=== PATIENT | female | born 1940 | race Caucasian/White ===

== ENCOUNTER → 2016-04-28 | Outpatient (CLI) | payer BC ==
[~2016-04-28] MED LIST: CALCTAB5 PO; CRDCD120 PO; PRAV20TA PO; PRLSR20 PO
--- NOTE | 2016-04-28 11:10 | DIAGNOSTIC IMAGING REPORT ---
CHEST 2 VIEWS ROUTINE CLINICAL HISTORY: R05 Cough dyspnea COMPARISON STUDY: 06/06/2013 FINDINGS: Chronic fibrocalcific changes and or pleural scarring left midlung. No focal infiltrate. Several scattered calcified granulomas. IMPRESSION: Chronic change. No acute process. Electronically signed by: Jake Campos M.D. 04/28/2016 11:09 AM Dictated Date/Time: 04/28/2016 11:08 AM
[2016-04-28 12:42] LABS: THYROID STIMULATING HORMONE 3.45 uIu/ml (0.300-4.500)
[2016-04-28 13:45] LABS: INFLUENZA A PCR Neg for Influ A (NEG); INFLUENZA B PCR Neg for Influ B (NEG)
== END | disposition home or self-care (01) ==
LOC: C.RAD1850 10:40
PROVIDERS: ATTEND Internal Medicine
DX: R05 Cough (principal); R94.6 Abnormal results of thyroid function studies

== ENCOUNTER → 2016-06-04 | Outpatient (CLI) | payer BC ==
--- NOTE | 2016-06-04 15:08 | MAMMOGRAPHY REPORT ---
BILATERAL DIGITAL SCREENING MAMMOGRAM WITH CAD: 06/04/2016 CLINICAL HISTORY: Routine screening. The patient reported to the technologist that she has lateral right breast pain, and reported an area of lateral breast firmness but could not identify the area a t the time of the exam. She also reported upper chest wall thickening has been present for years. TECHNIQUE: Current study was also evaluated with a Computer Aided Detection (CAD) system. Bilatera l CC and MLO views were obtained. COMPARISON: Comparison is made to exams dated: 05/24/2015 ultrasound, 05/24/2015 mammogram, 07/16/2014 mammogram, 07/13/2013 mammogram, 07/04/2012 mammogram, and 06/24/2010 mammogram - [facility]. BREAST COMPOSITION: There are scattered areas of fibroglandular density in both breasts. FINDINGS: No suspicious masses, calcifications, or areas of architectural distortion are noted in e ither breast. There has been no significant interval change compared to prior exams. Bilateral dony gn-appearing calcifications are not significantly changed. Nodular asymmetry in the left subareolar breast on the MLO view is similar to prior exams including the 2014 and 2011 exams. IMPRESSION: ACR BI-RADS CATEGORY 2: BENIGN There is no mammographic evidence of malignancy. A 1 year screening mammogram is recommended. Also recommend clinical follow-up for lateral right breast pain and possible area of firmness; if there i s clinical concern, ultrasound could be performed for further evaluation. The patient will receive written notification of the results. Approximately 10% of breast cancers are not detected with mammography. A negative mammographic repor t should not delay biopsy if a clinically suggestive mass is present. Lena Joaquin M.D. /:06/04/2016 13:29:46 Chalk Machine Operator: Tootie CHAUDHRY)([place]), [facility] letter sent: Normal 1/2 BI-RADS Code: ACR BI-RADS Category 2: Benign
== END | disposition home or self-care (01) ==
LOC: C.MAMM 09:42
PROVIDERS: ATTEND Internal Medicine
DX: Z12.31 Encounter for screening mammogram for malignant neoplasm of breast (principal)

== ENCOUNTER 2017-05-05 09:33 | Observation (INO) | payer BC ==
[~2017-05-05] VITALS: Ht 172.7 cm; Wt 73.3 kg
[2017-05-05] VITALS (9 sets, daily range): BP systolic 105–117; BP diastolic 48–69; PULSE 50–63; TEMP 36.4–36.9; O2SAT 91–99; Ht 172.7 cm; Wt 73.3 kg
[2017-05-05] MEDS ORDERED: ASPIRIN 81 MG CHEW PO STA (09:45)
[2017-05-05] MEDS ORDERED: ONDANSETRON INJ 2 MG/ML 2 ML VIAL IV STA (09:47)
[2017-05-05] MEDS ORDERED: HYDROmorphone INJ 1 MG/ML SYR IV STA (09:47)
[2017-05-05] MEDS ORDERED: ASPI81TA28 PO (09:59)
[2017-05-05] MEDS ORDERED: DILT-113 PO (09:59)
[2017-05-05] MEDS ORDERED: PRLSR20 PO (10:00)
[2017-05-05] MEDS ORDERED: OPTIRAY 320 IV PRN (10:00)
[2017-05-05] MEDS ORDERED: VNTHFA/IN INH (10:00)
[2017-05-05] MEDS ORDERED: LORA-741 PO (10:00)
--- NOTE | 2017-05-05 10:02 | DIAGNOSTIC IMAGING REPORT ---
CHEST ONE VIEW PORTABLE CLINICAL HISTORY: Chest Pain dyspnea COMPARISON STUDY: 04/28/2016 FINDINGS: Interval development of a prior peripheral left midlung infiltrate. Mild chronic basilar interstitial change. Unchanging calcified granuloma peripheral right midlung. Pulmonary apices are clear. IMPRESSION: Parenchymal infiltrate peripheral aspect left mid lung. Follow-up to complete resolution is suggested. The above report was generated using voice recognition software. It may contain grammatical, syntax or spelling errors. Electronically signed by: Jake Campos M.D. 05/05/2017 10:00 AM Dictated Date/Time: 05/05/2017 9:59 AM
[2017-05-05 10:10] LABS: BASO % 0.1 %; BASO ABS # 0.02 K/uL (0-0.2); EOS % 0.5 %; EOS ABS # 0.08 K/uL (0-0.5); HEMATOCRIT 41.4 % (37-47); HEMOGLOBIN 14.1 g/dL (12.0-16.0); IG# 0.03 K/uL (0.00-0.02); LYMPH % 7.6 %; LYMPH ABS # 1.12 K/uL (1.2-3.4); MEAN CELL VOLUME 85.9 fL (80-100); MEAN CORPUSCULAR HEMOGLOBIN 29.3 pg (25-34); MEAN CORPUSCULAR HGB CONC 34.1 g/dl (32-36); MEAN PLATELET VOLUME 10.7 fL (7.4-10.4); MONO % 4.7 %; MONO ABS # 0.69 K/uL (0.11-0.59); NEUT % 86.9 %; NEUT ABS # 12.71 K/uL (1.4-6.5); PLATELET COUNT 210 K/uL (130-400); RED CELL DISTRIBUTION WIDTH CV 14.3 % (11.5-14.5); RED CELL DISTRIBUTION WIDTH SD 44.6 fL (36.4-46.3); WHITE BLOOD COUNT 14.65 K/uL (4.8-10.8)
[2017-05-05 10:29] LABS: ALT/SGPT 13 U/L (12-78); BLOOD UREA NITROGEN 16 mg/dl (7-18); CARBON DIOXIDE 28 mmol/L (21-32); CREATININE 0.88 mg/dl (0.60-1.20); GLUCOSE 110 mg/dl (70-99); LIPASE 76 U/L (73-393); POTASSIUM 3.7 mmol/L (3.5-5.1); SODIUM 137 mmol/L (136-145)
[2017-05-05 10:34] LABS: ALKALINE PHOSPHATASE 77 U/L (45-117); AST/SGOT 12 U/L (15-37); CKMB 0.9 ng/ml (0.5-3.6); TOTAL PROTEIN 7.7 gm/dl (6.4-8.2)
--- NOTE | 2017-05-05 10:55 | DIAGNOSTIC IMAGING REPORT ---
CT ABD/PELVIS IV CONTRAST ONLY CLINICAL HISTORY: Right lower quadrant abdominal pain COMPARISON STUDY: August 2010 TECHNIQUE: Following the IV administration of 117 mL of Optiray-320, CT scan of the abdomen and pelvis was performed from the lung bases to the proximal femurs. Images are reviewed in the axial, sagittal, and coronal planes. IV contrast was administered without complication. A dose lowering technique was utilized adhering to the principles of ALARA. CT DOSE: 334.54 mGy.cm FINDINGS: Lower chest: There is pulmonary emphysema. There is mild bronchial wall thickening. There is evidence for mucous plugging. Liver: The contrast-enhanced liver is normal in size, contour, and attenuation. There is no intrahepatic biliary ductal dilatation. The hepatic veins and portal veins are patent. Gallbladder: Unremarkable. Spleen: Normal in size and attenuation. Pancreas: Unremarkable. Adrenal glands: Unremarkable. Kidneys: There is a 1 cm right renal cortical cyst. There is a 9 mL left renal cyst. Bowel: There are no transition zones indicate bowel obstruction. There is colonic diverticulosis. There are no acute peridiverticular inflammatory changes. There is a mildly dilated fluid-filled appendix with mild periappendiceal inflammatory change. In setting of right lower quadrant abdominal pain, the findings are suspicious for acute appendicitis. Peritoneum: There is no intraperitoneal free air or abdominal ascites. Vasculature: Moderate atheromatous changes are present within the abdominal aorta. Adenopathy: None. Pelvic viscera: The uterus appears surgically absent Skeletal structures: No destructive osseous lesions are seen. IMPRESSION: 1. Mildly dilated fluid-filled appendix with mild periappendiceal stranding. The findings are indicative of acute appendicitis and surgical consultation is recommended Electronically signed by: Rojelio Romero M.D. 05/05/2017 10:54 AM Dictated Date/Time: 05/05/2017 10:49 AM
--- NOTE | 2017-05-05 12:13 | Medical Consult ---
Consultation Date of Consultation: May 05, 2017. Attending Physician: Reason for Consultation: Acute Appendicitis History of Present Illness Ms. Marquez is a 77-year-old relatively healthy female who presented to the ED with chest pain and abdominal pain in the right lower quadrant that began acutely at 4AM. Patient states that she had been in her usual state of health until this morning. She states that she became nauseous, but did not vomit. She reports that her last meal was yesterday at 5PM. Patient is on a daily aspirin therapy, which she took this AM. Patient states that she was also given some Cardiac workup in ED negative. Patient states that chest pain has resolved and now pain is localized to right lower quadrant. Patient is a current everyday smoker. Social History Smoking Status: Current Every Day Smoker Allergies Coded Allergies: Prednisone (Unverified Allergy, Severe, ITCHING, PALPITATIONS, 05/05/17) Bupropion (Unverified Allergy, Unknown, ., 05/05/17) Codeine (Verified Allergy, Unknown, 05/05/17) Penicillins (Verified Allergy, Unknown, 05/05/17) Simvastatin (Unverified Adverse Reaction, Severe, MYALGIA, 05/05/17) Morphine (Verified Adverse Reaction, Intermediate, NIGHTMARES, 05/05/17) Current Inpatient Medications Current Inpatient Medications Medications (Trade) Dose Ordered Sig/Augustina Route Start Time Stop Time Status Last Admin Dose Admin Ioversol (Optiray 320) 125 ml UD PRN IV 05/05/17 10:00 05/09/17 09:59 Review of Systems Constitutional: No fever, No chills, No sweats Cardiovascular: No chest pain (resolved ) Abdomen: + pain, + nausea, No vomiting, No diarrhea, No constipation Physical Exam Date Time Temp Pulse Resp B/P (MAP) Pulse Ox O2 Delivery O2 Flow Rate FiO2 05/05/17 10:15 77 05/05/17 09:47 94 Room Air 05/05/17 09:35 36.8 86 20 128/88 94 Room Air General Appearance: WD/WN, no apparent distress Abdomen/GI: soft, + tenderness (right lower quadrant ) Skin: normal color, warm/dry, no rash Laboratory Results Last 24 Hours Test 05/05/17 09:50 05/05/17 09:55 White Blood Count 14.65 K/uL Red Blood Count 4.82 M/uL Hemoglobin 14.1 g/dL Hematocrit 41.4 % Mean Corpuscular Volume 85.9 fL Mean Corpuscular Hemoglobin 29.3 pg Mean Corpuscular Hemoglobin Concent 34.1 g/dl Platelet Count 210 K/uL Mean Platelet Volume 10.7 fL Neutrophils (%) (Auto) 86.9 % Lymphocytes (%) (Auto) 7.6 % Monocytes (%) (Auto) 4.7 % Eosinophils (%) (Auto) 0.5 % Basophils (%) (Auto) 0.1 % Neutrophils # (Auto) 12.71 K/uL Lymphocytes # (Auto) 1.12 K/uL Monocytes # (Auto) 0.69 K/uL Eosinophils # (Auto) 0.08 K/uL Basophils # (Auto) 0.02 K/uL RDW Standard Deviation 44.6 fL RDW Coefficient of Variation 14.3 % Immature Granulocyte % (Auto) 0.2 % Immature Granulocyte # (Auto) 0.03 K/uL Sodium Level 137 mmol/L Potassium Level 3.7 mmol/L Chloride Level 102 mmol/L Carbon Dioxide Level 28 mmol/L Anion Gap 7.0 mmol/L Blood Urea Nitrogen 16 mg/dl Creatinine 0.88 mg/dl Est Creatinine Clear Calc Drug Dose 54.8 ml/min Estimated GFR () 74.0 Estimated GFR (Non- 63.8 BUN/Creatinine Ratio 18.3 Random Glucose 110 mg/dl Calcium Level 9.0 mg/dl Total Bilirubin 0.5 mg/dl Direct Bilirubin 0.1 mg/dl Aspartate Amino Transf (AST/SGOT) 12 U/L Alanine Aminotransferase (ALT/SGPT) 13 U/L Alkaline Phosphatase 77 U/L Total Creatine Kinase 102 U/L Creatine Kinase MB 0.9 ng/ml Creatine Kinase MB Ratio 0.9 Troponin I < 0.015 ng/ml Total Protein 7.7 gm/dl Albumin 4.0 gm/dl Lipase 76 U/L Bedside Lactic Acid Venous 1.04 mmol/L Assessment & Plan 77-year-old female with CT confirmed acute appendicitis, WBC elevated at 14.65 Patient seen and examined with Dr. Monterroso. Will schedule patient for Laparoscopic Appendectomy with Dr. Monterroso in OR today. Risks of surgery discussed with patient. Patient had no further questions. SCDs thigh NPO ABX- Clindamycin.
[2017-05-05] MEDS ORDERED: CLINDAMYCIN IV 900 MG in DEXTROSE 5% 100ML 100 ML IV ONE (12:15)
[2017-05-05] MEDS ORDERED: LIDOCAINE HCL 2% 2 ML VIAL (20MG/ML) ONE (12:22)
[2017-05-05] MEDS ORDERED: PROPOFOL IV EMULSION 10 MG/ML 20 ML VIAL IV ONE (12:22)
[2017-05-05] MEDS ORDERED: DEXAMETHASONE SOD INJ 4 MG/ML VIAL ONE (12:22)
[2017-05-05] MEDS ORDERED: ONDANSETRON INJ 2 MG/ML 2 ML VIAL ONE (12:22)
[2017-05-05] MEDS ORDERED: BUPIVACAINE 0.5 % 5 MG/1 ML MPF 30ML VIAL ONE (12:23)
[2017-05-05] MEDS ORDERED: FENTANYL CITRATE INJ 50 MCG/1 ML 2 ML VIAL ONE (12:23)
[2017-05-05] MEDS ORDERED: MIDAZOLAM HCL 1 MG/ML 2ML VIAL ONE (12:23)
[2017-05-05] MEDS ORDERED: HYDROmorphone INJ 1 MG/ML SYR IV PRN (12:30)
[2017-05-05] MEDS ORDERED: LABETALOL HCL IV 5 MG/ML 20ML IV PRN (12:30)
[2017-05-05] MEDS ORDERED: FENTANYL CITRATE INJ 50 MCG/1 ML 2 ML VIAL IV PRN (12:30)
[2017-05-05] MEDS ORDERED: ONDANSETRON INJ 2 MG/ML 2 ML VIAL IV PRN ×2 (12:30→14:15)
[2017-05-05] MEDS ORDERED: ATROPINE SULFATE 0.1 MG/ML 5ML SYR IV PRN (12:30)
[2017-05-05] MEDS ORDERED: MEPERIDINE HCL 25 MG/ML CARP IV PRN (12:30)
[2017-05-05] MEDS ORDERED: EpHEDrine SULFATE INJ 50 MG/ML AMP IV PRN (12:30)
[2017-05-05] MEDS ORDERED: ACETAMINOPHEN 1000 MG/100 ML IV IV ONE (12:55)
[2017-05-05] MEDS ORDERED: ROCURONIUM BROMIDE 10 MG/ML 5 ML VIAL IV ONE (13:53)
[2017-05-05] MEDS ORDERED: NEOSTIGMINE METHYLSULFATE 5 MG/5 ML SYR ONE (13:54)
[2017-05-05] MEDS ORDERED: GLYCOPYRROLATE INJ 0.2 MG/ML VIAL ONE (13:54)
--- NOTE | 2017-05-05 14:03 | [facility] Post Operative Brief Note ---
Immediate Operative Summary Operative Date May 05, 2017. Pre-Operative Diagnosis Acute Appendicitis Post-Operative Diagnosis Acute Appendicitis Procedure(s) Performed Laparoscopic Appendectomy Surgeon Dr. Monterroso [employer] Surgeon(s) RAISA Smith Estimated Blood Loss 3 ml Findings Consistent with Post-Op Diagnosis Acute, nonperforated, suppurative appendicitis Specimens A. Appendix Drains None Anesthesia Type General Complication(s) none Disposition Accompanied Pt To Recover: no Disposition: Recovery Room / PACU
--- NOTE | 2017-05-05 14:07 | [facility] Operative Report ---
Operative Report Operative Date May 05, 2017. Pre-Operative Diagnosis Acute Appendicitis Post-Operative Diagnosis Acute, nonperforated, suppurative appendicitis Procedure(s) Performed Laparoscopic appendectomy Surgeon Dr. Monterroso Sheet Metal Insulator Surgeon(s) RAISA Smith Estimated Blood Loss 3 ml Findings Acute, nonperforated, suppurative appendicitis Specimens A. Appendix Drains None Anesthesia GETA Complication(s) None Disposition Recovery Room / PACU Indications 77-year-old female presented to the emergency department with diffuse abdominal and chest pain, cardiac workup negative. Pain eventually migrated to the right lower quadrant, and a CT scan revealed acute appendicitis. Plan for laparoscopic appendectomy. The risks of the procedure were discussed, all questions were answered, and the patient agreed to proceed with surgery as planned. Description of Procedure The patient was properly identified, consented, and taken to the operating room where she was placed in the supine position. General endotracheal anesthesia was induced. SCDs and a safety belt were placed. Preoperative antibiotics were administered. A Isabel catheter was not placed. The patient's abdomen was prepped and draped in the standard sterile fashion. Surgical timeout was performed and all parties were in agreement that this was the correct patient and procedure to be performed and we continued as planned. A curvilinear infraumbilical incision was made with electrocautery and deepened down to the fascia with blunt dissection. The base of the umbilicus was grasped with a Christopher and elevated towards the ceiling. An incision was made in the midline fascia with a knife and entry into the peritoneum was confirmed. Stay suture of 0 Vicryl was placed and a Garcia trocar was inserted. The abdomen was insufflated with carbon dioxide which the patient tolerated without incident. The laparoscope was inserted and no damage from initial trocar placement was noted, no gross abnormalities were noted within the 4 quadrants the abdomen. 3 mm ports were then placed in the left lower quadrant with care not to damage the epigastric vessels, and in the suprapubic midline with care not to damage the bladder. The patient was placed in Trendelenburg position and rotated towards the left. The small bowel was swept away from the right lower quadrant. The cecum was grasped with an atraumatic grasper exposing the appendix. The appendix was moderately inflamed and there was no evidence of perforation, but there may have been a small amount of focal necrosis in the mid and proximal appendix. There was no significant fluid in the pelvis. A window was created between the base of the appendix and the mesoappendix. A lemos loaded endoscopic stapler was then used to divide the appendix at its base. A lemos load was then used to divide the mesoappendix. Hemostasis was good. The appendix was placed in an Endo Catch bag and removed through the umbilical port site. The right lower quadrant and pelvis was irrigated and hemostasis was found to be good. 3 mm trochars were removed under direct visualization and the abdomen was allowed to collapse. The umbilical port site fascia was closed with 0 Vicryl suture. The wound was irrigated, and the skin of the umbilical port was closed with 4-0 Monocryl subcuticular suture. Dermabond was placed over the wounds. The patient was extubated in the operating room and taken to the PACU where she recovered without apparent incident. All sponge, instrument and needle counts were correct at the conclusion of the procedure. The patient tolerated the procedure well. The physician's clerical assistant was present and scrubbed for the entirety of the case. She was essential in positioning, prepping and draping the patient, retraction and exposure, removal of the appendix, closure incisions, and placement of dressings. I attest to the content of the Intraoperative Record and any orders documented therein. Any exceptions are noted below.
--- NOTE | 2017-05-05 14:22 | Discharge Instructions ---
Discharge Instructions Date of Service May 05, 2017. Admission Reason for Admission: Body Pains Discharge Discharge Diagnosis / Problem: Body Pains Discharge Goals Goal(s): Decrease discomfort, Improve function Activity Recommendations Activity Limitations: as noted below Lifting Limitations: no more than 10 pounds Exercise/Sports Limitations: until after follow-up appointment May Resume Sexual Activity: after follow-up appointment Shower/Bathe: tomorrow Driving or Machine Use: resume 3 days after discharge . Instructions / Follow-Up Instructions / Follow-Up Please follow-up with Dr. Monterroso in the General Surgery Clinic located at [address] [place] [address] [place] [address] in 1-2 weeks. Please call the office at [phone] to schedule this appointment. Please call the office with any questions or concerns. Current Hospital Diet Patient's current hospital diet: Clear Liquid Diet Discharge Diet Recommended Diet: Regular Diet Procedures Procedures Performed: Laparoscopic Appendectomy Pending Studies Studies pending at discharge: yes List of pending studies: Pathology report. Medical Emergencies . Who to Call and When: Medical Emergencies: If at any time you feel your situation is an emergency, please call 911 immediately. . Non-Emergent Contact Non-Emergency issues call your: Primary Care Provider, Surgeon Call Non-Emergent contact if: temperature is above 101.5, your pain is not controlled, wound has increased drainage, wound has increased redness . "Provider Documentation" section prepared by Gissell Jamison. . VTE Core Measure Inpt VTE Proph given/why not?: SCD's
[2017-05-05] MEDS ORDERED: LORAZEPAM 0.5 MG TAB PO PRN (14:30)
[2017-05-05] MEDS: ALBUTEROL HFA 8 GM INHALER INH SCH ×2 (14:30→21:06)
[2017-05-05] MEDS ORDERED: TRAMADOL HCL 50 MG TAB PO PRN (14:30)
[2017-05-05] MEDS ORDERED: ACETAMINOPHEN IV 100 ML IV PRN (14:30)
--- NOTE | 2017-05-05 15:18 | Anesthesiology Progress Note ---
Anesthesia Post Op Note Date & Time May 05, 2017 at 15:18 Vital Signs Pain Intensity: 0 Vital Signs Past 12 Hours Date Time Temp Pulse Resp B/P (MAP) Pulse Ox O2 Delivery O2 Flow Rate FiO2 05/05/17 15:05 55 16 119/63 97 Nasal Cannula 2 05/05/17 14:55 55 16 126/64 97 Nasal Cannula 2 05/05/17 14:45 70 16 124/64 97 Nasal Cannula 2 05/05/17 14:35 70 16 134/69 92 Room Air 05/05/17 14:25 79 16 132/69 94 Nasal Cannula 2 05/05/17 14:16 36.7 71 16 163/80 98 Oxymask 10 05/05/17 12:43 36.8 66 20 130/70 94 05/05/17 12:33 66 20 05/05/17 12:31 130/70 05/05/17 12:17 94 Room Air 05/05/17 12:03 68 15 05/05/17 12:01 139/74 05/05/17 11:33 68 17 93 05/05/17 11:31 132/73 05/05/17 11:03 77 18 90 05/05/17 10:33 75 16 05/05/17 10:31 137/72 05/05/17 10:15 77 05/05/17 10:03 138/80 05/05/17 09:47 94 Room Air 05/05/17 09:35 36.8 86 20 128/88 94 Room Air Notes Mental Status: alert / awake / arousable, participated in evaluation Pt Amnestic to Procedure: Yes Nausea / Vomiting: adequately controlled Pain: adequately controlled Airway Patency, RR, SpO2: stable & adequate BP & HR: stable & adequate Hydration State: stable & adequate Anesthetic Complications: no major complications apparent
[2017-05-05] MEDS ORDERED: IV FLUIDS COMPLETED PRN (15:45)
--- NOTE | 2017-05-05 15:55 | EMERGENCY ROOM VISIT NOTE ---
History Report prepared by Crow: Ric Manriquez Under the Supervision of: Dr. Carlos South D.O. First contact with patient: 09:39 Chief Complaint: CARDIAC ASSESSMENT Stated Complaint: BODY PAINS History of Present Illness The patient is a 77 year old female who presents to the Emergency Room with complaints of a burning left sided chest pain that began this morning. She rates her pain an 8/10 in severity. She has a past medical history of angina, hyperlipidemia, borderline diabetes, and smoking. When the patient woke up this morning, she had this sensation in her chest that radiated into her upper abdomen. Now, the patient's chest pain is mildly better, but her abdominal pain moved into her right lower abdomen. She denies any arm pain or jaw pain. She is experiencing intermittent neck pain. Pt denies headache, change in vision, fevers, cough, sore throat, shortness of breath, nausea, vomiting, diarrhea, pain with urination, and melena. Patient denies hypertension, CAD, history of sudden at a young age. Her last bowel movement was yesterday and reports it as normal. Source of History: patient Position: chest (left) Symptom Intensity: 8/10 Quality: burning Timing: constant Associated Symptoms: + neck pain (intermittent), + abdominal pain (RLQ), No fevers, No headache, No SOB, No nausea, No vomiting, No melena, No diarrhea, No urinary symptoms Review of Systems See HPI for pertinent positives & negatives. A total of 10 systems reviewed and were otherwise negative. Past Medical & Surgical Medical Problems: (1) Anginal pain (2) HLD (hyperlipidemia) (3) Prediabetes Surgical Problems: (1) S/P laparoscopic appendectomy Family History Omitted secondary to the patient's age. Social History Smoking Status: Current Every Day Smoker Smokeless Tobacco Use: No Drug Use: none Occupation Status: retired Current/Historical Medications Scheduled Albuterol Hfa (Ventolin Hfa), 2-4 PUFFS INH Q6H Aspirin (Aspirin Ec), 81 MG PO DAILY Diltiazem Hcl Ext Rel (Tiazac), 180 MG PO DAILY Omeprazole (Prilosec), 20 MG PO BID Scheduled PRN Lorazepam (Ativan), 0.5 MG PO BID PRN for Anxiety Allergies Coded Allergies: Prednisone (Unverified Allergy, Severe, ITCHING, PALPITATIONS, 05/05/17) Bupropion (Unverified Allergy, Unknown, ., 05/05/17) Codeine (Verified Allergy, Unknown, 05/05/17) Penicillins (Verified Allergy, Unknown, 05/05/17) Simvastatin (Unverified Adverse Reaction, Severe, MYALGIA, 05/05/17) Morphine (Verified Adverse Reaction, Intermediate, NIGHTMARES, 05/05/17) Physical Exam Vital Signs Date Time Temp Pulse Resp B/P (MAP) Pulse Ox O2 Delivery O2 Flow Rate FiO2 05/05/17 15:35 55 16 113/61 97 Nasal Cannula 2 05/05/17 15:25 55 16 103/53 97 Nasal Cannula 2 05/05/17 15:15 36.9 55 16 115/67 97 Nasal Cannula 2 05/05/17 15:05 55 16 119/63 97 Nasal Cannula 2 05/05/17 14:55 55 16 126/64 97 Nasal Cannula 2 05/05/17 14:45 70 16 124/64 97 Nasal Cannula 2 05/05/17 14:35 70 16 134/69 92 Room Air 05/05/17 14:25 79 16 132/69 94 Nasal Cannula 2 05/05/17 14:16 36.7 71 16 163/80 98 Oxymask 10 05/05/17 12:43 36.8 66 20 130/70 94 05/05/17 12:33 66 20 05/05/17 12:31 130/70 05/05/17 12:17 94 Room Air 05/05/17 12:03 68 15 05/05/17 12:01 139/74 05/05/17 11:33 68 17 93 05/05/17 11:31 132/73 05/05/17 11:03 77 18 90 05/05/17 10:33 75 16 05/05/17 10:31 137/72 05/05/17 10:15 77 05/05/17 10:03 138/80 05/05/17 09:47 94 Room Air 05/05/17 09:35 36.8 86 20 128/88 94 Room Air Physical Exam GENERAL: Sitting up in bed with a dry nonproductive cough, alert, chronically ill appearing, well nourished, no distress, non-toxic EYE EXAM: normal conjunctiva. PERRL and EOM's grossly intact. OROPHARYNX: no exudate, no erythema, lips, buccal mucosa, and tongue normal and mucous membranes are moist NECK: supple, no nuchal rigidity, no adenopathy, non-tender LUNGS: Clear to auscultation. Normal chest wall mechanics HEART: no murmurs, S1 normal and S2 normal ABDOMEN: abdomen soft, tenderness to palpation of the RLQ, normo-active bowel sounds, no masses, no rebound or guarding. BACK: Back is symmetrical on inspection and there is no deformity, no midline tenderness, no CVA tenderness. SKIN: no rashes and no bruising UPPER EXTREMITIES: upper extremities are grossly normal. LOWER EXTREMITIES: No pitting edema. NEURO EXAM: Normal sensorium, cranial nerves II-XII grossly intact, normal speech, no gross weakness of arms, no gross weakness of legs. Medical Decision & Procedures ER Provider Diagnostic Interpretation: Radiology results as stated below per my review and the radiologist's interpretation: CHEST ONE VIEW PORTABLE CLINICAL HISTORY: Chest Pain dyspnea COMPARISON STUDY: 04/28/2016 FINDINGS: Interval development of a prior peripheral left midlung infiltrate. Mild chronic basilar interstitial change. Unchanging calcified granuloma peripheral right midlung. Pulmonary apices are clear. IMPRESSION: Parenchymal infiltrate peripheral aspect left mid lung. Follow-up to complete resolution is suggested. The above report was generated using voice recognition software. It may contain grammatical, syntax or spelling errors. Electronically signed by: Jake Campos M.D. 05/05/2017 10:00 AM Dictated Date/Time: 05/05/2017 9:[address] ABD/PELVIS IV CONTRAST ONLY CLINICAL HISTORY: Right lower quadrant abdominal pain COMPARISON STUDY: August 2010 TECHNIQUE: Following the IV administration of 117 mL of Optiray-320, CT scan of the abdomen and pelvis was performed from the lung bases to the proximal femurs. Images are reviewed in the axial, sagittal, and coronal planes. IV contrast was administered without complication. A dose lowering technique was utilized adhering to the principles of ALARA. CT DOSE: 334.54 mGy.cm FINDINGS: Lower chest: There is pulmonary emphysema. There is mild bronchial wall thickening. There is evidence for mucous plugging. Liver: The contrast-enhanced liver is normal in size, contour, and attenuation. There is no intrahepatic biliary ductal dilatation. The hepatic veins and portal veins are patent. Gallbladder: Unremarkable. Spleen: Normal in size and attenuation. Pancreas: Unremarkable. Adrenal glands: Unremarkable. Kidneys: There is a 1 cm right renal cortical cyst. There is a 9 mL left renal cyst. Bowel: There are no transition zones indicate bowel obstruction. There is colonic diverticulosis. There are no acute peridiverticular inflammatory changes. There is a mildly dilated fluid-filled appendix with mild periappendiceal inflammatory change. In setting of right lower quadrant abdominal pain, the findings are suspicious for acute appendicitis. Peritoneum: There is no intraperitoneal free air or abdominal ascites. Vasculature: Moderate atheromatous changes are present within the abdominal aorta. Adenopathy: None. Pelvic viscera: The uterus appears surgically absent Skeletal structures: No destructive osseous lesions are seen. IMPRESSION: 1. Mildly dilated fluid-filled appendix with mild periappendiceal stranding. The findings are indicative of acute appendicitis and surgical consultation is recommended Electronically signed by: Rojelio Romero M.D. 05/05/2017 10:54 AM Dictated Date/Time: 05/05/2017 10:49 AM Laboratory Results 05/05/17 09:50 Red Blood Count 4.82, Mean Corpuscular Volume 85.9, Mean Corpuscular Hemoglobin 29.3, Mean Corpuscular Hemoglobin Concent 34.1, Mean Platelet Volume 10.7, Neutrophils (%) (Auto) 86.9, Lymphocytes (%) (Auto) 7.6, Monocytes (%) (Auto) 4.7, Eosinophils (%) (Auto) 0.5, Basophils (%) (Auto) 0.1, Neutrophils # (Auto) 12.71, Lymphocytes # (Auto) 1.12, Monocytes # (Auto) 0.69, Eosinophils # (Auto) 0.08, Basophils # (Auto) 0.02 05/05/17 09:50 Test 05/05/17 09:50 05/05/17 09:55 White Blood Count 14.65 K/uL (4.8-10.8) Red Blood Count 4.82 M/uL (4.2-5.4) Hemoglobin 14.1 g/dL (12.0-16.0) Hematocrit 41.4 % (37-47) Mean Corpuscular Volume 85.9 fL (80-100) Mean Corpuscular Hemoglobin 29.3 pg (25-34) Mean Corpuscular Hemoglobin Concent 34.1 g/dl (32-36) Platelet Count 210 K/uL (130-400) Mean Platelet Volume 10.7 fL (7.4-10.4) Neutrophils (%) (Auto) 86.9 % Lymphocytes (%) (Auto) 7.6 % Monocytes (%) (Auto) 4.7 % Eosinophils (%) (Auto) 0.5 % Basophils (%) (Auto) 0.1 % Neutrophils # (Auto) 12.71 K/uL (1.4-6.5) Lymphocytes # (Auto) 1.12 K/uL (1.2-3.4) Monocytes # (Auto) 0.69 K/uL (0.11-0.59) Eosinophils # (Auto) 0.08 K/uL (0-0.5) Basophils # (Auto) 0.02 K/uL (0-0.2) RDW Standard Deviation 44.6 fL (36.4-46.3) RDW Coefficient of Variation 14.3 % (11.5-14.5) Immature Granulocyte % (Auto) 0.2 % Immature Granulocyte # (Auto) 0.03 K/uL (0.00-0.02) Anion Gap 7.0 mmol/L (3-11) Est Creatinine Clear Calc Drug Dose 54.8 ml/min Estimated GFR () 74.0 Estimated GFR (Non- 63.8 BUN/Creatinine Ratio 18.3 (10-20) Calcium Level 9.0 mg/dl (8.5-10.1) Total Bilirubin 0.5 mg/dl (0.2-1) Direct Bilirubin 0.1 mg/dl (0-0.2) Aspartate Amino Transf (AST/SGOT) 12 U/L (15-37) Alanine Aminotransferase (ALT/SGPT) 13 U/L (12-78) Alkaline Phosphatase 77 U/L (45-117) Total Creatine Kinase 102 U/L (26-192) Creatine Kinase MB 0.9 ng/ml (0.5-3.6) Creatine Kinase MB Ratio 0.9 (0-3.0) Troponin I < 0.015 ng/ml (0-0.045) Total Protein 7.7 gm/dl (6.4-8.2) Albumin 4.0 gm/dl (3.4-5.0) Lipase 76 U/L (73-393) Bedside Lactic Acid Venous 1.04 mmol/L (0.90-1.70) Laboratory results per my review. Medications Administered Medications (Trade) Dose Ordered Sig/Augustina Route Start Time Stop Time Status Last Admin Dose Admin Aspirin (Aspirin Chew) 324 mg NOW STAT PO 05/05/17 09:45 05/05/17 09:46 DC 05/05/17 10:01 324 MG Hydromorphone HCl (Dilaudid Inj) 1 mg NOW STAT IV 05/05/17 09:47 05/05/17 09:48 DC 05/05/17 10:03 1 MG Ondansetron HCl (Zofran Inj) 4 mg NOW STAT IV 05/05/17 09:47 05/05/17 09:48 DC 05/05/17 10:02 4 MG Clindamycin Phosphate 900 mg/ Dextrose 106 ml @ 100 mls/hr ONE ONCE IV 05/05/17 12:15 05/05/17 13:18 DC 05/05/17 13:05 100 MLS/HR Bupivacaine HCl (Marcaine 0.5% MPF Inj) 30 ml STK-MED ONCE .ROUTE 05/05/17 12:23 05/05/17 12:24 DC 05/05/17 13:59 12 ML ECG Per My Interpretation Indication: abdominal pain, chest pain Rate (beats per minute): 80 Rhythm: sinus rhythm Findings: nonspecific-ST abn (inferior and lateral), Q waves (Septal) Comparison ECG Date: Mar 15, 2001 Change: Nonspecific ST abnormalities are new ED Course ED COURSE: Vital signs were reviewed and showed normal vitals The patients medical record was reviewed The above diagnostic studies were performed and reviewed. ED treatments and interventions as stated above. 0939: The patient was evaluated in room A12. A complete history and physical examination was performed. 0945: Ordered Aspirin 324 mg PO 0947: Ordered Zofran Inj 4 mg IV, Dilaudid Inj 1 mg IV 1053: Upon reevaluation, the patient is feeling much better. She no long has chest pain but is having RLQ abdominal pain. 1105: I updated the patient on her results. 1132: Upon reevaluation, the patient is resting.I discussed my findings with the patient and she understands and agrees with the treatment plan. Based on the patients age, coexisting illnesses, exam and lab findings the decision to treat as an inpatient was made. The patient remained stable while under my care. The patient will be evaluated by Gissell VILLAFANA of General Surgery, for further management. Medical Decision Differential diagnoses includes but is not limited to acute coronary syndrome, myocardial infarction, pericarditis, pulmonary embolus, aortic dissection, pneumonia, pneumothorax, musculoskeletal, shingles, esophageal, gastritis, peptic ulcer disease, GERD, gallbladder disease, pancreatitis, small bowel obstruction, pericarditis, ischemic bowel, irritable bowel disease, irritable bowel syndrome, appendicitis, diverticulitis, malignancy, hernia, urinary tract infection, torsion, perforation, trauma, infectious. Patient is a 77-year-old female that presents to the ER for initially epigastric chest pain which then radiated to the right lower quadrant that started this morning. Labs show a leukocytosis of 14,000. BMP along with ALTs , bilirubin, troponin and lipase were normal. Lactic acid was normal. CT of the abdomen and pelvis shows acute appendicitis. Patient was given IV narcotics. She was updated at bedside. Discussed with general surgery and she was evaluated and admitted for acute appendicitis. Medication Reconcilliation Current Medication List: was personally reviewed by me Blood Pressure Screening Patient's blood pressure: Normal blood pressure Blood pressure disposition: Did not require urgent referral Consults Time Called: 1110 Consulting Physician: Gissell VILLAFANA - General Surgery Returned Call: 1132 I reviewed the patient's case with her. She will evaluate the patient for further management. Impression Primary Impression: Acute appendicitis Scribe Attestation The scribe's documentation has been prepared under my direction and personally reviewed by me in its entirety. I confirm that the note above accurately reflects all work, treatment, procedures, and medical decision making performed by me. Departure Information Dispostion Being Evaluated By Surgeon Referrals Jass Graves M.D. (PCP) Patient Instructions My [facility] Problem Qualifiers Primary Impression: Acute appendicitis Acute appendicitis type: with localized peritonitis Qualified Codes: K35.3 - Acute appendicitis with localized peritonitis
[2017-05-05] MEDS: LACTATED RINGER'S 1000ML 1,000 ML IV SCH ×2 (18:29→22:21)
[2017-05-05] MEDS: PANTOprazole SOD 40 MG TAB PO SCH (21:06)
[2017-05-06] MEDS: ALBUTEROL HFA 8 GM INHALER INH SCH ×2 (03:07→08:52)
[2017-05-06 03:48] VITALS: BP 123/45; PULSE 56; TEMP 36.3; O2SAT 93
[2017-05-06] MEDS: LACTATED RINGER'S 1000ML 1,000 ML IV SCH (05:45)
[2017-05-06 06:35] LABS: HEMATOCRIT 36.6 % (37-47); HEMOGLOBIN 12.5 g/dL (12.0-16.0); IG# 0.05 K/uL (0.00-0.02); LYMPH % 7.3 %; LYMPH ABS # 0.85 K/uL (1.2-3.4); MEAN CELL VOLUME 84.5 fL (80-100); MEAN CORPUSCULAR HEMOGLOBIN 28.9 pg (25-34); MEAN CORPUSCULAR HGB CONC 34.2 g/dl (32-36); MEAN PLATELET VOLUME 10.2 fL (7.4-10.4); MONO ABS # 0.23 K/uL (0.11-0.59); NEUT % 90.3 %; NEUT ABS # 10.46 K/uL (1.4-6.5); PLATELET COUNT 182 K/uL (130-400); RED CELL DISTRIBUTION WIDTH CV 14.1 % (11.5-14.5); WHITE BLOOD COUNT 11.59 K/uL (4.8-10.8)
--- NOTE | 2017-05-06 06:36 | Surgery Progress Note ---
Surgery Progress Note Date of Service May 06, 2017. Subjective Post OP Day: 1 + feeling well, + ambulating, + pain controlled, + diet (Tolerating full liquids ), No complaints, No bowel movement, No nausea, No vomiting Objective Vital Signs: Date Time Temp Pulse Resp B/P (MAP) Pulse Ox O2 Delivery O2 Flow Rate FiO2 05/06/17 03:48 36.3 56 18 123/45 (71) 93 Room Air 05/05/17 23:55 Room Air 05/05/17 22:33 36.9 57 18 116/48 (70) 92 Room Air 05/05/17 21:32 92 Room Air 05/05/17 19:10 36.8 63 18 112/64 (80) 91 Room Air 05/05/17 17:57 36.7 63 18 117/69 (85) 92 Room Air 05/05/17 17:30 Room Air 05/05/17 17:10 36.9 53 18 105/59 (74) 93 Room Air 05/05/17 16:39 36.4 50 18 113/66 (82) 93 Room Air 05/05/17 16:10 97 Room Air 05/05/17 16:10 99 Room Air 05/05/17 15:55 55 16 126/67 97 Nasal Cannula 2 05/05/17 15:45 55 16 119/64 97 Nasal Cannula 2 05/05/17 15:35 55 16 113/61 97 Nasal Cannula 2 05/05/17 15:25 55 16 103/53 97 Nasal Cannula 2 05/05/17 15:15 36.9 55 16 115/67 97 Nasal Cannula 2 05/05/17 15:05 55 16 119/63 97 Nasal Cannula 2 05/05/17 14:55 55 16 126/64 97 Nasal Cannula 2 05/05/17 14:45 70 16 124/64 97 Nasal Cannula 2 05/05/17 14:35 70 16 134/69 92 Room Air 05/05/17 14:25 79 16 132/69 94 Nasal Cannula 2 05/05/17 14:16 36.7 71 16 163/80 98 Oxymask 10 05/05/17 12:43 36.8 66 20 130/70 94 05/05/17 12:33 66 20 05/05/17 12:31 130/70 05/05/17 12:17 94 Room Air 05/05/17 12:03 68 15 05/05/17 12:01 139/74 05/05/17 11:33 68 17 93 05/05/17 11:31 132/73 05/05/17 11:03 77 18 90 05/05/17 10:33 75 16 05/05/17 10:31 137/72 05/05/17 10:15 77 05/05/17 10:03 138/80 05/05/17 09:47 94 Room Air 05/05/17 09:35 36.8 86 20 128/88 94 Room Air General Appearance: WD/WN, no apparent distress Head: normocephalic, atraumatic Neck: trachea midline Respiratory/Chest: no respiratory distress, no accessory muscle use Abdomen: soft, no organomegaly, + distended (mild), + tenderness (Incisional) Incision(s): clean, dry, intact, no erythema, no drainage Laboratory Results: Results Past 24 Hours Test 05/05/17 09:50 05/05/17 09:55 05/06/17 06:24 Range/Units White Blood Count 14.65 4.8-10.8 K/uL Red Blood Count 4.82 4.2-5.4 M/uL Hemoglobin 14.1 12.0-16.0 g/dL Hematocrit 41.4 37-47 % Mean Corpuscular Volume 85.9 80-100 fL Mean Corpuscular Hemoglobin 29.3 25-34 pg Mean Corpuscular Hemoglobin Concent 34.1 32-36 g/dl Platelet Count 210 130-400 K/uL Mean Platelet Volume 10.7 7.4-10.4 fL Neutrophils (%) (Auto) 86.9 % Lymphocytes (%) (Auto) 7.6 % Monocytes (%) (Auto) 4.7 % Eosinophils (%) (Auto) 0.5 % Basophils (%) (Auto) 0.1 % Neutrophils # (Auto) 12.71 1.4-6.5 K/uL Lymphocytes # (Auto) 1.12 1.2-3.4 K/uL Monocytes # (Auto) 0.69 0.11-0.59 K/uL Eosinophils # (Auto) 0.08 0-0.5 K/uL Basophils # (Auto) 0.02 0-0.2 K/uL RDW Standard Deviation 44.6 36.4-46.3 fL RDW Coefficient of Variation 14.3 11.5-14.5 % Immature Granulocyte % (Auto) 0.2 % Immature Granulocyte # (Auto) 0.03 0.00-0.02 K/uL Sodium Level 137 136-145 mmol/L Potassium Level 3.7 3.5-5.1 mmol/L Chloride Level 102 98-107 mmol/L Carbon Dioxide Level 28 21-32 mmol/L Anion Gap 7.0 3-11 mmol/L Blood Urea Nitrogen 16 7-18 mg/dl Creatinine 0.88 0.60-1.20 mg/dl Est Creatinine Clear Calc Drug Dose 54.8 ml/min Estimated GFR () 74.0 Estimated GFR (Non- 63.8 BUN/Creatinine Ratio 18.3 10-20 Random Glucose 110 70-99 mg/dl Calcium Level 9.0 8.5-10.1 mg/dl Total Bilirubin 0.5 0.2-1 mg/dl Direct Bilirubin 0.1 0-0.2 mg/dl Aspartate Amino Transf (AST/SGOT) 12 15-37 U/L Alanine Aminotransferase (ALT/SGPT) 13 12-78 U/L Alkaline Phosphatase 77 45-117 U/L Total Creatine Kinase 102 26-192 U/L Creatine Kinase MB 0.9 0.5-3.6 ng/ml Creatine Kinase MB Ratio 0.9 0-3.0 Troponin I < 0.015 0-0.045 ng/ml Total Protein 7.7 6.4-8.2 gm/dl Albumin 4.0 3.4-5.0 gm/dl Lipase 76 73-393 U/L Bedside Lactic Acid Venous 1.04 0.90-1.70 mmol/L Assessment & Plan POD #1 s/p laparoscopic appendectomy Pain controlled, No N/V, tolerating full liquids, Urinating without trouble. AM labs pending. Regular diet this AM D/C today if tolerating breakfast. Please contact with questions or concerns.
[2017-05-06 07:07] LABS: CALCIUM 9.2 mg/dl (8.5-10.1); CREATININE 0.81 mg/dl (0.60-1.20)
[2017-05-06 07:12] VITALS: BP 151/68; PULSE 60; TEMP 36.5; O2SAT 91
[2017-05-06] MEDS: PANTOprazole SOD 40 MG TAB PO SCH (08:51)
[2017-05-06] MEDS ORDERED: DILTIAZEM HCL (TIAzac) 180 MG CAPCR PO SCH (09:00)
[2017-05-06 10:06] VITALS: BP 151/68; PULSE 60; TEMP 36.5; O2SAT 91
--- NOTE | 2017-05-06 10:41 | Anesthesiology Progress Note ---
Anesthesia Post Op Note Date & Time May 06, 2017 at 10:41 Vital Signs Pain Intensity: 0.0 Vital Signs Past 12 Hours Date Time Temp Pulse Resp B/P (MAP) Pulse Ox O2 Delivery O2 Flow Rate FiO2 05/06/17 10:06 36.5 60 22 91 Room Air 05/06/17 07:45 Room Air 05/06/17 07:12 36.5 60 22 151/68 (95) 91 Room Air 05/06/17 03:48 36.3 56 18 123/45 (71) 93 Room Air 05/05/17 23:55 Room Air Notes Mental Status: alert / awake / arousable, participated in evaluation Pt Amnestic to Procedure: Yes Nausea / Vomiting: adequately controlled Pain: adequately controlled Airway Patency, RR, SpO2: stable & adequate BP & HR: stable & adequate Hydration State: stable & adequate Anesthetic Complications: no major complications apparent
== END 2017-05-06 10:29 | disposition home or self-care (01) ==
LOC: C.EDB 09:34 → C.MSW 14:16 → ENRESERV 15:38
PROVIDERS: ADMIT Surgery; ATTEND Surgery
DX: K35.80 Unspecified acute appendicitis (principal); D12.1 Benign neoplasm of appendix; E78.5 Hyperlipidemia, unspecified; I20.9 Angina pectoris, unspecified; R73.03 Prediabetes; F17.210 Nicotine dependence, cigarettes, uncomplicated; Z88.5 Allergy status to narcotic agent; Z88.0 Allergy status to penicillin; Z79.82 Long term (current) use of aspirin

== ENCOUNTER → 2017-05-25 | Outpatient (CLI) | payer BC ==
[~2017-05-25] MED LIST changes: +ASPI81TA28 PO; -CALCTAB5 PO; -CRDCD120 PO; +DILT-113 PO; +LORA-741 PO; -PRAV20TA PO; +VNTHFA/IN INH
[2017-05-25 12:47] LABS: BLOOD UREA NITROGEN 13 mg/dl (7-18); CHOLESTEROL 238 mg/dl (0-200)
[2017-05-25 12:54] LABS: HEMOGLOBIN A1C 5.8 % (4.5-5.6)
[2017-05-25 12:57] LABS: LDL CHOLESTEROL CALCULATED 152 mg/dl
== END | disposition home or self-care (01) ==
LOC: C.LABBFT 08:06
PROVIDERS: ATTEND Internal Medicine
DX: R63.4 Abnormal weight loss (principal); R73.03 Prediabetes; E78.5 Hyperlipidemia, unspecified; E55.9 Vitamin D deficiency, unspecified; R10.11 Right upper quadrant pain

== ENCOUNTER → 2017-05-28 | Outpatient (CLI) | payer BC ==
[~2017-05-28] MED LIST changes: +OPTIRAY 320 IV PRN
--- NOTE | 2017-05-28 13:08 | DIAGNOSTIC IMAGING REPORT ---
CT OF THE CHEST WITH IV CONTRAST CLINICAL HISTORY: Abnormal chest radiograph. COMPARISON STUDY: Chest CT May 27, 2015 and December 20, 2006 and chest radiograph May 05, 2017. TECHNIQUE: Following IV administration of 94 mL of Optiray-320, helical axial images of the chest were obtained. Sagittal and coronal reconstructions were viewed as well as maximal intensity projections on an independent 3-D workstation. A dose lowering technique was utilized adhering to the principles of ALARA. CT DOSE: 228.60 mGy.cm FINDINGS: A prominent AP window lymph node has slightly decreased in size since exam of May 27, 2015. The size of the heart is normal. There is no pericardial effusion. There are multiple calcified mediastinal and bilateral hilar lymph nodes indicative of a prior granulomas process. Left pleural multifocal calcification is noted. There are several calcified nodules within the lungs. Note is made of moderate emphysema. Moderate tree-in-bud nodularity is noted within the lingula and both lower lobes. There is multifocal mucus plugging within the segmental bronchi of the lower lobes with bronchial wall thickening. This accounts for the finding on previous chest radiograph. There is no cavitation. There is no pneumothorax or pleural effusion. Upper abdomen and bony thorax are unremarkable. IMPRESSION: 1. Moderate scattered tree-in-bud nodules within the lingula and both lower lobes which accounts for the finding on prior chest radiograph. Bronchial wall thickening with multifocal mucus plugging. The findings suggest an infectious process and raise the possibility of an atypical mycobacterial infection. 2. Moderate emphysema. 3. Evidence for a prior granulomatous process. Electronically signed by: Renan Sam M.D. 05/28/2017 1:07 PM Dictated Date/Time: 05/28/2017 12:57 PM
== END | disposition home or self-care (01) ==
LOC: C.CTS 12:23
PROVIDERS: ATTEND Internal Medicine
DX: R63.4 Abnormal weight loss (principal); R91.8 Other nonspecific abnormal finding of lung field; J43.9 Emphysema, unspecified

== ENCOUNTER → 2017-07-06 | Outpatient (CLI) | payer BC ==
[~2017-07-06] MED LIST changes: -OPTIRAY 320 IV PRN
--- NOTE | 2017-07-07 15:30 | MAMMOGRAPHY REPORT ---
BILATERAL DIGITAL SCREENING MAMMOGRAM TOMOSYNTHESIS WITH CAD: 07/06/2017 CLINICAL HISTORY: Routine screening. TECHNIQUE: Breast tomosynthesis in addition to standard 2D mammography was performed. Current study was also evaluated with a Computer Aided Detection (CAD) system. COMPARISON: Comparison is made to exams dated: 06/04/2016 mammogram, 07/16/2014 mammogram, 07/13/2013 yael mogram, 07/04/2012 mammogram, 06/26/2011 mammogram, and 06/24/2010 mammogram - [facility] [address] BREAST COMPOSITION: There are scattered areas of fibroglandular density in both breasts. FINDINGS: Linear scar markers overlie the right upper outer quadrant and left lower inner quadrant. There the parenchymal pattern is similar to prior mammograms. There are a few benign coarse calcific ations in the breasts. No developing mass, architectural distortion or cluster of suspicious microca lcifications is seen. IMPRESSION: ACR BI-RADS CATEGORY 2: BENIGN There is no mammographic evidence of malignancy. A 1 year screening mammogram is recommended. The pa tient will receive written notification of the results. Approximately 10% of breast cancers are not detected with mammography. A negative mammographic report should not delay biopsy if a clinically suggestive mass is present. Zulma Owens M.D. ay/:07/06/2017 14:44:17 Beveling Machine Operator: Jenaro SNOW(Cherry)(M), [facility] letter sent: Normal 1/2 BI-RADS Code: ACR BI-RADS Category 2: Benign
== END | disposition home or self-care (01) ==
LOC: C.MAMM 13:38
PROVIDERS: ATTEND Internal Medicine
DX: Z12.31 Encounter for screening mammogram for malignant neoplasm of breast (principal)

== ENCOUNTER → 2017-07-19 | Outpatient (CLI) | payer BC ==
[2017-07-19 12:11] LABS: BASO % 0.5 %; BASO ABS # 0.03 K/uL (0-0.2); EOS % 3.2 %; EOS ABS # 0.19 K/uL (0-0.5); HEMATOCRIT 41.3 % (37-47); HEMOGLOBIN 13.6 g/dL (12.0-16.0); IG# 0.01 K/uL (0.00-0.02); LYMPH % 28.2 %; LYMPH ABS # 1.67 K/uL (1.2-3.4); MEAN CELL VOLUME 86.8 fL (80-100); MEAN CORPUSCULAR HEMOGLOBIN 28.6 pg (25-34); MEAN CORPUSCULAR HGB CONC 32.9 g/dl (32-36); MEAN PLATELET VOLUME 11.2 fL (7.4-10.4); MONO % 5.1 %; NEUT % 62.8 %; NEUT ABS # 3.73 K/uL (1.4-6.5); PLATELET COUNT 229 K/uL (130-400); RED CELL DISTRIBUTION WIDTH CV 14.6 % (11.5-14.5); RED CELL DISTRIBUTION WIDTH SD 46.3 fL (36.4-46.3); WHITE BLOOD COUNT 5.93 K/uL (4.8-10.8)
[2017-07-19 12:22] LABS: PTT PATIENT 23.8 SECONDS (21.0-31.0)
[2017-07-19 12:45] LABS: ALBUMIN 3.5 gm/dl (3.4-5.0); ALT/SGPT 13 U/L (12-78); AST/SGOT 10 U/L (15-37); BLOOD UREA NITROGEN 14 mg/dl (7-18); CALCIUM 8.8 mg/dl (8.5-10.1); CARBON DIOXIDE 29 mmol/L (21-32); CREATININE 0.86 mg/dl (0.60-1.20); GLUCOSE 105 mg/dl (70-99); POTASSIUM 4.3 mmol/L (3.5-5.1); SODIUM 139 mmol/L (136-145)
[2017-07-19 13:05] LABS: ALKALINE PHOSPHATASE 75 U/L (45-117); TOTAL PROTEIN 7.7 gm/dl (6.4-8.2)
== END | disposition home or self-care (01) ==
LOC: C.LABBFT 08:27
PROVIDERS: ATTEND Internal Medicine Pulmonary Disease
DX: E03.9 Hypothyroidism, unspecified (principal); R91.1 Solitary pulmonary nodule

== ENCOUNTER 2017-07-23 07:03 | Day surgery (SDC) | payer BC ==
[~2017-07-23] VITALS: Ht 172.7 cm; Wt 72.5 kg
[2017-07-23] VITALS (7 sets, daily range): BP systolic 129–160; BP diastolic 71–81; PULSE 52–67; TEMP 36.4–36.5; O2SAT 97–100; Ht 172.7 cm; Wt 72.5 kg
[2017-07-23] MEDS ORDERED: DILT-113 PO (08:02)
[2017-07-23] MEDS ORDERED: LOVA40TA4 PO (08:05)
[2017-07-23] MEDS ORDERED: LEVO50TA6 PO (08:05)
--- NOTE | 2017-07-23 08:36 | History & Physical Bridge Note ---
H&P Re-Evaluation Bridge Note: I have examined the patient, reviewed the History & Physical and in the interval since the performance of the History & Physical I have noted the following changes of clinical significance: No changes noted
--- NOTE | 2017-07-23 08:37 | Pre Sedation Assessment ---
Pre Sedation Assessment General Date of Sedation: July 23, 2017. Vital Signs Past 12 Hours Date Time Temp Pulse Resp B/P (MAP) Pulse Ox O2 Delivery O2 Flow Rate FiO2 07/23/17 08:00 36.4 64 20 143/79 (100) 97 Room Air Pre-Sedation Airway Assessment Smoking Status: Current Every Day Smoker Hx of Sleep Apnea: No Short Thick Neck: No Oral Cavity: Dentures Mallampati Classification: Class II ASA Classification: Class II Procedure Planning Contraindications for Sedation: None Current Medications Reviewed: Yes Notes The planned sedation has been discussed with the patient. Informed Consent was obtained. I have identified the patient, determined the appropriateness of sedation and have assessed the patient immediately prior to the procedure. All medicine(s) and interventions are by my order.
--- NOTE | 2017-07-23 09:49 | [facility] Operative Report ---
Operative Report Operative Date July 23, 2017. Pre-Operative Diagnosis Pulmonary Nodules, Cough Post-Operative Diagnosis Chronic Mucopurulent Bronchitis w mucoid impaction Pulmonary Nodules, Cough Procedure(s) Performed Bronchoscopy Surgeon Barbara Machine Tracer Surgeon(s) None Estimated Blood Loss 0 Findings Chronic Mucopurulent Bronchitis Specimens RLL bronchial wash Complication(s) None Disposition Indications Chronic Cough I attest to the content of the Intraoperative Record and any orders documented therein. Any exceptions are noted below.
--- NOTE | 2017-07-23 09:50 | Post Sedation Assessment ---
Post Sedation Assessment General Date of Sedation July 23, 2017. Vital Signs: Vital Signs Past 12 Hours Date Time Temp Pulse Resp B/P (MAP) Pulse Ox O2 Delivery O2 Flow Rate FiO2 07/23/17 09:25 64 18 153/110 100 Mask 07/23/17 08:00 36.4 64 20 143/79 (100) 97 Room Air Post Procedure Recovery Score Activity: (2) Moves 4 extremities * Respiration: (2) Deep breath/cough Circulation: (2) +/-20% PreAnes Value Consciousness: (1) Arouseable (by name) Oxygen Saturation: (1) O2 needed for >90% Discharge Sedation Level of Care: Fast Track Phase II Post Sedation Plan On clinical assessment, the patient appears to have tolerated the sedation without complications. Patient is recovering as anticipated. Patient will continue to be monitored by nursing and may be discharged when sedation discharge criteria are met per below protocol. Upon Completions of procedure and additional 15 minutes continue every 5 minute vital signs and the P.A.R. score; then discharge to a Phase I or Fast Track to Phase II per the following guidelines: * Discharge Patient to appropriate Phase II area if PAR is 8 or greater or return to pre- procedure baseline. The post - procedure orders will be as directed. * If PAR score is less than 8 or not return to pre-procedure baseline then patient will follow Phase I monitoring till PAR is reached for Phase II. The Phase I may be done in procedure room or may call to secure a Phase I area. * If naloxone or flumazenil are used for reversal, hold in Phase I for an additional 60 -120 minutes before discharge to Phase II. Please call the Sedation Physician to re-evaluate and complete post-note for discharge to Phase II area. Do NOT discharge from procedure sedation or Phase 1 until post- sedation evaluation note is complete by procedure /sedation MD Sedation Discharge Instructions to be given to the patient at discharge to home.
--- NOTE | 2017-07-23 09:52 | Discharge Instructions ---
Discharge Instructions Date of Service July 23, 2017. Admission Reason for Admission: Pulmonary Nodule, Cough Discharge Discharge Diagnosis / Problem: Chronic Mucopurulent Bronchitis Discharge Goals Goal(s): Diagnostic testing Activity Recommendations Activity Limitations: resume your previous activity Lifting Limitations: none Exercise/Sports Limitations: none May Resume Sexual Activity: when tolerated Shower/Bathe: no limitations Driving or Machine Use: resume 1 day after discharge None . Instructions / Follow-Up Instructions / Follow-Up ACTIVITY RECOMMENDATIONS: * Rest today, resume normal activity tomorrow. * Do not drive today. SPECIAL CARE INSTRUCTIONS: * Call your physician if you experience any chest or shoulder pain, fever, coughing, spitting up blood (more than 2 teaspoons) or excessive shortness of breath. * Remove dressing from IV site (where needle was placed into the vein) after 2 hours. Apply a warm, moist compress to site if irritation occurs. Call physician if site becomes red or painful to touch. FOLLOW UP VISIT: * Keep any scheduled doctor appointments. Current Hospital Diet Patient's current hospital diet: Regular Discharge Diet Recommended Diet: Regular Diet Fluid Restriction: None Procedures Procedures Performed: Bronchoscopy Pending Studies Studies pending at discharge: no Laboratory Results Hemoglobin A1c Test 05/25/17 08:12 Range/Units Estimated Average Glucose 120 mg/dl Hemoglobin A1c 5.8 H 4.5-5.6 % Lipid Panel Test 05/25/17 08:12 Range/Units Triglycerides Level 112 0-150 mg/dl Cholesterol Level 238 H 0-200 mg/dl HDL Cholesterol 64 mg/dl Cholesterol/HDL Ratio 3.7 LDL Cholesterol, Calculated 152 mg/dl Medical Emergencies . Who to Call and When: Medical Emergencies: If at any time you feel your situation is an emergency, please call 911 immediately. . Non-Emergent Contact Non-Emergency issues call your: Outbound Sales Agent Call Non-Emergent contact if: temperature is above 101 . . "Provider Documentation" section prepared by Se Jimenez. .
[2017-07-23] MEDS ORDERED: LIDOCAINE HCL 2% LOCAL 50ML VIAL INSTIL ONE (09:56)
[2017-07-23] MEDS ORDERED: LIDOCAINE 4% INH SOLN 4 ML BTL TOP ONE (09:56)
[2017-07-23] MEDS ORDERED: MIDAZOLAM HCL 5 MG/ML 1 ML VIAL IV ONE (09:56)
[2017-07-23] MEDS ORDERED: FENTANYL CITRATE INJ 50 MCG/1 ML 2 ML VIAL IV ONE (09:56)
[2017-07-23] MEDS ORDERED: LEVALBUTEROL 1.25MG/3ML NEB INH ONE (09:56)
[2017-07-23] MEDS ORDERED: OXYMETAZOLINE HCL 0.05% NA SPR 15 ML BTL ONE (09:56)
[2017-07-23] MEDS ORDERED: IPRATROPIUM BROMIDE NEB SOLN 0.02% 2.5 ML VIAL INH ONE (10:00)
--- NOTE | 2017-07-23 11:07 | OPERATIVE REPORT ---
DATE OF OPERATION: 07/23/2017 PROCEDURE: Fiberoptic bronchoscopy with bronchoalveolar lavage. INDICATIONS: Persistent chest congestion/multiple pulmonary opacities. ANESTHESIA PREOPERATIVELY: None. ANESTHESIA DURING PROCEDURE: 50 mcg IV fentanyl, 5 mg IV Versed. The procedure began at 0933 and was completed at 0945. DESCRIPTION OF PROCEDURE: Fiberoptic bronchoscope was inserted into the right naris with minimal difficulty and passed to the level of true vocal cords. The cords appear to approximate normally with phonation without evidence for lesions or paralysis. The area was anesthetized with 2% Xylocaine spray and the scope was then introduced in the trachea and right and left tracheobronchial tree. The joss was sharp. The right main stem bronchus was explored initially and thick mucopurulent secretion was seen adherent to the posterior membrane of the right main stem bronchus just at the level of the joss. This was lavaged until clear. The right upper lobe, the apical posterior, anterior segments were free of endobronchial lesions. The bronchus intermedius, right middle lobe, and the medial, lateral segments and all basilar segments of right lower lobe were found to be free of endobronchial lesions but a large amount of mucoid impaction with mucous plugging was seen involving most of the basal segments, right lower lobe, and the lateral segment of the right middle lobe. These areas were copiously lavaged with normosol and the aspirate sent for appropriate studies. Moderately severe chronic inflammatory mucosal change was seen globally with mucus pitting and bronchial crypts and clefts visible. Left tracheobronchial tree was explored and similar findings were noted with the same degree of inflammatory mucosal change and bronchial markings. The left upper lobe, the apical-posterior anterior segments, lingular subdivision, left lower lobe were free of endobronchial lesions and copiously lavaged with normosol and the aspirate sent for appropriate studies. No brushings or biopsies were deemed necessary. Fluoroscopy was not utilized. The procedure was terminated. The patient was given a nebulizer with Xopenex 1.25 mg, then transferred to the medical treatment unit hemodynamically stable, no signs of respiratory compromise. Will await microbiological and cytologic examination of the bronchial washings. I attest to the content of the Intraoperative Record and any orders documented therein. Any exception s are noted below.
[2017-07-27 10:51] LABS: HERPES SIMPLEX VIRUS CULT NOT ISOLATED (NOT ISOLATED)
== END 2017-07-23 12:22 | disposition home or self-care (01) ==
LOC: C.ACU 07:03
PROVIDERS: ATTEND Internal Medicine Pulmonary Disease
DX: J41.1 Mucopurulent chronic bronchitis (principal); J45.909 Unspecified asthma, uncomplicated; F32.9 Major depressive disorder, single episode, unspecified; K21.9 Gastro-esophageal reflux disease without esophagitis; E78.5 Hyperlipidemia, unspecified; Z90.710 Acquired absence of both cervix and uterus; Z87.891 Personal history of nicotine dependence; Z79.82 Long term (current) use of aspirin; Z80.3 Family history of malignant neoplasm of breast; Z80.1 Family history of malignant neoplasm of trachea, bronchus and lung

== ENCOUNTER 2018-08-29 01:39 | Inpatient (IN) ==
[2018-08-29 02:18] LABS: Basophils # (auto) 0.02 K/uL (0-0.2); Basophils % (auto) 0.2 %; Eosinophils # (auto) 0.16 K/uL (0-0.5); Eosinophils % (auto) 1.5 %; Hematocrit (blood only) 41.4 % (37-47); Hemoglobin 14.1 g/dL (12.0-16.0); Immature Granulocytes # (auto) 0.02 K/uL (0.00-0.02); Immature Granulocytes % (auto) 0.2 %; Lymphocytes # (auto) 1.31 K/uL (1.2-3.4); Lymphocytes % (auto) 12.6 %; Mean Corpuscular Hgb Conc 34.1 g/dL (32-36); Mean Corpuscular Volume 87.2 fL (80-100); Mean Platelet Volume 10.7 fL (7.4-10.4); Monocytes % (auto) 7.7 %; Neutrophils # (auto) 8.09 K/uL (1.4-6.5); Neutrophils % (auto) 77.8 %; Platelet Count 159 K/uL (130-400); RDW Coefficient of Variation 14.5 % (11.5-14.5); RDW Standard Deviation 46.4 fL (36.4-46.3); Red Blood Count 4.75 M/uL (4.2-5.4)
[2018-08-29 02:36] LABS: Alanine Aminotransferase 13 U/L (12-78); Albumin Level 3.5 gm/dl (3.4-5.0); Aspartate Aminotransferase 10 U/L (15-37); BUN Creatinine Ratio 20.2 (10-20); Bilirubin Direct < 0.1 mg/dl (0-0.2); Blood Urea Nitrogen 21 mg/dl (7-18); Calcium 8.3 mg/dl (8.5-10.1); Carbon Dioxide 27 mmol/L (21-32); Chloride 107 mmol/L (98-107); Creatinine Clr Calc Pharmacy 44.8 ml/min; Est GFR (African American) 58.7; Est GFR (Non-African American) 50.6; Glucose 116 mg/dl (70-99); Magnesium 2.1 mg/dl (1.8-2.4); Potassium 3.7 mmol/L (3.5-5.1); Sodium 141 mmol/L (136-145)
[2018-08-29 02:41] LABS: Alkaline Phosphatase 71 U/L (45-117); Bilirubin,Total 0.3 mg/dl (0.2-1); Total Protein 6.8 gm/dl (6.4-8.2); Troponin I < 0.015 ng/ml (0-0.045)
--- NOTE | 2018-08-29 04:01 | History & Physical Report ---
Date of Service August 29, 2018 Assessment & Plan (1) Near syncope: The patient reportedly was getting up to go to bathroom, felt dizzy, and sat down on her own because she thought she might pass out, but did not completely pass out. CT of the head was negative, laboratory work-up is negative, would not pursue additional testing such as MRI unless patient had recurrent symptoms or focal symptoms. Admit to telemetry for close monitoring. Would not call this a TIA. Present on Admission?: Yes (2) Hypothyroidism (acquired): Continue levothyroxine sodium daily when able to take p.o. Present on Admission?: Yes (3) GERD (gastroesophageal reflux disease): Continue ranitidine 150 mg p.o. twice daily when able to take p.o. Present on Admission?: Yes (4) HLD (hyperlipidemia): Continue lovastatin 40 mg p.o. every morning when she is able to take p.o. Present on Admission?: Yes (5) Vertigo: Presumptively was given Ativan IV in route Present on Admission?: Yes (6) Hypertension: Hold diltiazem 180 mg p.o. twice daily while patient is n.p.o.. Will have Cardizem 10 mg IV every 4 hours as needed available Present on Admission?: Yes History of Present Illness Chief Complaint: The patient presents to the ED in altered mental state. She did receive 1.5mg of lorazepam IV en route, and is unable to answer questions for her HPI or ROS. In the ED, work-up included CBC with differential and chemistry profile, with only abnormality being a glucose of 116. She also had a CT scan of the head which was negative and chest x-ray was negative. Vital signs were normal with blood pressure 114/60, pulse 64, respirations 16, temperature 97.7. Her pulse ox was 88% on room air, and improved to 100% 2 L nasal cannula oxygen. Primary Care Provider: Jass Graves MD Patient is unable to relate information due to altered mental state. Allergies Allergy/AdvReac Type Severity Reaction Status Date / Time Penicillins Allergy Intermediate HIVES Verified 08/29/18 03:37 bupropion Allergy Unknown "changes Verified 08/29/18 03:37 my attitude" codeine Allergy Unknown "passes Verified 08/29/18 03:37 out" prednisone Allergy Unknown ITCHING, Verified 08/29/18 03:37 PALPITATIONS morphine AdvReac Intermediate NIGHTMARES Verified 08/29/18 03:37 simvastatin AdvReac Intermediate MYALGIA Verified 08/29/18 03:37 Home Medications Home Medications Medication Instructions Recorded Confirmed Type albuterol sulfate [Ventolin HFA] 2 puff INHALATION QID PRN 11/24/17 08/29/18 History aspirin [Aspirin Low Dose] 81 mg PO QAM 11/24/17 08/29/18 History diltiazem HCl 180 mg PO BID 11/24/17 08/29/18 History levothyroxine 1 tab PO QAM 11/24/17 08/29/18 History lovastatin 40 mg PO QAM 11/24/17 08/29/18 History ranitidine HCl 150 mg PO BID 11/24/17 08/29/18 History Past Med/Surg History Medical History Encounter for pre-operative examination HLD (hyperlipidemia) (Chronic) Prediabetes (Chronic) Anginal pain (Chronic) Hypertension Atrial flutter ON DILTIAZEM Emphysema/COPD INHALER PRN GERD (gastroesophageal reflux disease) History of anesthesia reaction 45 YRS AGO-DIFFICULTY WAKING AND HX OF HEART RATE DROPPING, NO ISSUES SINCE Hyperlipidemia Hypothyroidism Osteoporosis Skin cancer Stable angina Surgical History S/P laparoscopic appendectomy H/O Moh's micrographic surgery for skin cancer 2010 H/O abdominal hysterectomy H/O bilateral cataract extraction H/O lumbar discectomy History of appendectomy History of bilateral tubal ligation History of breast biopsy BILT-BENIGN History of bronchoscopy L LUNG ?SPOT History of cardiac cath 1983 X1--NO STENT 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 History of colonoscopy History of dilatation and curettage History of esophagogastroduodenoscopy (EGD) History of tonsillectomy History of tooth extraction ALL TEETH Family History Family/Other Family history of diabetes mellitus NIECES, NEPHEWS Brother Family hx of colon cancer Family/Other Family hx of colon cancer 1 NIECE, 2 NEPHEWS Social History Preferred Language: Romansh Communication Ability: Effective Beliefs That Will Affect Care: None Current Living Situation: Family Current Living Situation Comment: LIVES WITH SON Feels Safe at Home: Yes Smoking Status: Current every day smoker Tobacco Type: cigarettes Cigarettes Per Day: 10 A DAY Second Hand Exposure: Yes (PARENTS SMOKED) Hx Alcohol Use: No Hx Substance Use: No Review of Systems Review of Systems: The patient is not able to contribute due to altered mental state. Physical Exam Physical Exam: The patient is lethargic, minimally arousable with unintelligible speech, normocephalic and atraumatic, lying in bed and in no acute distress. HEENT--PERRL, EOMI, mucous membranes and oropharynx dry. Neck--supple. No JVD. No bruits. Thyroid normal, trachea midline, no sheron opathy. Heart--normal S1 and S2. No murmurs, rubs or gallops. Lungs--clear bilaterally, no respiratory distress, no accessory muscle use. Abdomen--normal bowel sounds and soft. Nontender. Nondistended. Extremities--no cyanosis or clubbing. No edema. There are good distal pulses b/l. Dermatologic--normal skin turgor, normal color, no abnormal lymph nodes, no rash. Neurologic--cranial nerves II through XII grossly intact. Rheumatologic--normal range of motion. Psychiatric--lethargic and unresponsive Results & Data Vital Signs (Past 12 Hours) Vital Signs Temp Pulse Pulse Resp BP BP Pulse Ox 08/29/18 03:15 64 16 114/60 100 08/29/18 02:20 70 18 104/55 L 99 08/29/18 01:49 97.7 F 70 18 130/59 L 88 L Laboratory Results Laboratory Results WBC 10.40 K/uL (4.8-10.8) 08/29/18 02:06 RBC 4.75 M/uL (4.2-5.4) 08/29/18 02:06 Hgb 14.1 g/dL (12.0-16.0) 08/29/18 02:06 Hct 41.4 % (37-47) 08/29/18 02:06 MCV 87.2 fL (80-100) 08/29/18 02:06 MCH 29.7 pg (25-34) 08/29/18 02:06 MCHC 34.1 g/dL (32-36) 08/29/18 02:06 RDW Std Deviation 46.4 fL (36.4-46.3) H 08/29/18 02:06 RDW Coeff of Sindhu 14.5 % (11.5-14.5) 08/29/18 02:06 Plt Count 159 K/uL (130-400) 08/29/18 02:06 MPV 10.7 fL (7.4-10.4) H 08/29/18 02:06 Immature Gran % (Auto) 0.2 % 08/29/18 02:06 Neut % (Auto) 77.8 % 08/29/18 02:06 Lymph % (Auto) 12.6 % 08/29/18 02:06 Barber % (Auto) 7.7 % 08/29/18 02:06 Eos % (Auto) 1.5 % 08/29/18 02:06 Baso % (Auto) 0.2 % 08/29/18 02:06 Immature Gran # (Auto) 0.02 K/uL (0.00-0.02) 08/29/18 02:06 Neut # (Auto) 8.09 K/uL (1.4-6.5) H 08/29/18 02:06 Lymph # (Auto) 1.31 K/uL (1.2-3.4) 08/29/18 02:06 Barber # (Auto) 0.80 K/uL (0.11-0.59) H 08/29/18 02:06 Eos # (Auto) 0.16 K/uL (0-0.5) 08/29/18 02:06 Baso # (Auto) 0.02 K/uL (0-0.2) 08/29/18 02:06 Sodium 141 mmol/L (136-145) 08/29/18 02:06 Potassium 3.7 mmol/L (3.5-5.1) 08/29/18 02:06 Chloride 107 mmol/L (98-107) 08/29/18 02:06 Carbon Dioxide 27 mmol/L (21-32) 08/29/18 02:06 Anion Gap 7.0 (3-11) 08/29/18 02:06 BUN 21 mg/dl (7-18) H 08/29/18 02:06 Creatinine 1.06 mg/dl (0.6-1.2) 08/29/18 02:06 Est Cr Clr Drug Dosing 44.8 ml/min 08/29/18 02:06 Est GFR ( Amer) 58.7 08/29/18 02:06 Est GFR (Non-Af Amer) 50.6 08/29/18 02:06 BUN/Creatinine Ratio 20.2 (10-20) H 08/29/18 02:06 Glucose 116 mg/dl (70-99) H 08/29/18 02:06 Calcium 8.3 mg/dl (8.5-10.1) L 08/29/18 02:06 Magnesium 2.1 mg/dl (1.8-2.4) 08/29/18 02:06 Total Bilirubin 0.3 mg/dl (0.2-1) 08/29/18 02:06 Direct Bilirubin < 0.1 mg/dl (0-0.2) 08/29/18 02:06 AST 10 U/L (15-37) L 08/29/18 02:06 ALT 13 U/L (12-78) 08/29/18 02:06 Alkaline Phosphatase 71 U/L (45-117) 08/29/18 02:06 Troponin I < 0.015 ng/ml (0-0.045) 08/29/18 02:06 Total Protein 6.8 gm/dl (6.4-8.2) 08/29/18 02:06 Albumin 3.5 gm/dl (3.4-5.0) 08/29/18 02:06 Diagnostic Findings [facility] Patient: ROOPA TREVINO (Female) Age: 78 MR #: [id number] Status: ER Date: 08/29/18 02:23 Slices: 66 History: SYNCOPE Priors: Tech: Tien Polanco @ [phone] Exams: CT HEAD Accession Numbers: [id number] Preliminary Findings Only See Final Report For Complete Findings CT HEAD: Compared to 06/26/2011. No acute intracranial process. Radiologist: Alice Martinez M.D. Study ready at 02:30 and initial results transmitted at 02:59 *This report constitutes a preliminary interpretation only. Non-acute findings felt to be unrelated to the clinical presentation may not be discussed in this report. The study will be interpreted and a final report will be generated by the local Radiologist the following shift. To reach the hospital radiology department call [phone]. If a discrepancy is found between the preliminary and final interpretations of this study, please notify us via our Client Portal at [email or web address], under QA Exams. You can also fax this report with a description of the discrepancy, or include the final report, to our daytime fax number [phone]. If faxing, please indicate the severity of discrepancy using one of the following categories: [ ] 1 - Agree/Informational [ ] 2 - Unlikely to Affect Management [ ] 3 - Possible Eventual Change of Management [ ] 4 - Probable Immediate Change of Management For all other patient related information, please fax us at [phone]. Code Status & VTE Plan Code Status full code VTE Prophylaxis Plan VTE Prophylaxis will be ordered: Yes PG Care Time/CCT Total # of Minutes Spent Total Time Spent with Patient: Total time spent is greater than 50% in coordination of care (as documented) at patient's floor/unit and/or counseling patient:
--- NOTE | 2018-08-29 06:00 | Emergency Department Note ---
Entered by Boubacar Song acting as a scribe for ED Provider Note Name: Corinne Marquez Age: 78, female Arrives Via: EMS Informant: Patient, EMS CC: Dizziness HPI: The patient is a 78 year old female who presents to the emergency department with complaints of constant dizziness beginning this morning. The patient states that she woke up this morning and felt as though the room was spinning. She notes that she had to sit down on the floor because she was so dizzy. She is unsure if she lost consciousness and she does not know what happened for a short amount of time. Per EMS, the patient was given 4 Zofran and 1.5 Ativan en route to the emergency department. The patient denies any CP, headache, abdominal pain, and ear pain. She reports that she has a history of hypertension and high cholesterol, but she notes that she does not have a history of diabetes, previous strokes, and previous heart attacks. She reports that she smokes cigarettes. ROS: See above HPI for pertinent positives & negatives. A total of 10 systems reviewed and were otherwise negative. Past Medical History: Hyperlipidemia, hypertension, COPD, hypothyroidism, GERD, osteoporosis Past Surgical History: Appendectomy, cardiac cath, tonsillectomy, EGD, bilateral tubal ligation Family History: Diabetes, colon cancer Social History: Lives with family, current every day smoker, does not use drugs, does not drink alcohol Home Medications: Albuterol sulfate, Aspirin, Diltiazem, levothyroxine, lovastatin, ranitidine HCl Allergies: Penicillins, bupropion, codeine, prednisone, morphine, simvastatin Physical: Vitals: BP 114/60, Pulse 64, Resp 16, Temp 97.7 F, O2 Sat 100 Delivery Nasal Cannula, Flow Rate 2L/min Exam: GENERAL: Patient is very somnolent appearing and in minimal distress. EYES: No scleral icterus, unremarkable pupils. ENT: Mucous membranes moist, no nasal congestion. NECK: No masses appreciated, no meningismus, trachea is midline. RESPIRATORY: No dyspnea. Clear to auscultation and equal bilaterally. No wheeze, no rhonchi. Poor inspiratory effort. CARDIOVASCULAR: Regular rate and rhythm. No murmurs, rubs, gallops appreciated. GASTROINTESTINAL: Abdomen soft, non-tender, no peritonitis. Bowel sounds positive. No masses appreciated. BACK: No midline tenderness, no CVA tenderness EXTREMITIES: Normal motion all extremities, no cyanosis, no edema. NEUROLOGIC: Alert and oriented, no acute motor or sensory deficits, no focal weakness, cranial nerves grossly intact. SKIN: No rash, no jaundice, no diaphoresis. ED Course: Prior Medical Record, Triage/Nursing Notes, Medications, Allergies reviewed by Me 0151: The patient was evaluated in room A11. A complete history and physical exam was performed. 0248: Dr. Gasca [place] [facility]. 0324: Upon reevaluation, the patient is stable. I discussed the findings and the treatment plan with the patient. She expresses agreement and understanding. I spoke with Dr. Gasca of the [facility] [place] [facility]. The patient will be evaluated for further management. Vital Signs: reviewed and remarkable for wnl Labs: Reviewed and remarkable for wnl Interventions: saline lock Imaging: Chest X-ray: X ray results are stated below per my interpretation: Chest: 1 view: No infiltrate, no effusion, normal cardiac border. Radiology results as stated below per my review and the radiologist's interpretation: CT HEAD: Compared to 06/26/2011. No acute intracranial process. Radiologist: Alice Martinez MD. EKG: EKG results per my interpretation. Indication - dizziness. Normal sinus, 77, QTC 470, no ectopy, no ischemia, similar to previous. Consults: 0324: I reviewed the patient's case with Dr. Gasca [place] [facility] He will evaluate the patient for further management. Blood pressure: Normal. No Referral necessary Disposition: Hospitalization. Differentials: Differential diagnoses include Benign positional vertigo, Dehydration, Hypovolemia, Anemia, Tumor, Infection, Hypoglycemia, Electrolyte abnormalities, Cardiac sources, Intracerebral event, Toxicologic, Neurologic, as well as others were entertained. Medical Decision Makin yr old female arrives following episode of severe vertigo that awoke her from sleep and then notes after getting up collapsed to ground before passing out for brief amount of time. Received 1.5mg IV Ativan STOCK OR DELIVERY CLERK by EMS and currently is quite somnolent. CT head negative. Labs look OK. Vitals good other than h ypoxia on RA, and EKG OK. She is stable, no further vertiginous symptoms but still quite somnolent. Will need to come in due to syncope and fact she is hypoxic. There are no neuro deficits on exam and without continued vertiginous symptoms I do not feel she requires emergent CTA at this time. Currently no evidence of ACS. She has no PE risk factors and has good reason to be hypoxic otherwise. Impression: Syncope, vertigo Joshua Shaw MD The scribe's documentation has been prepared under my direction and personally reviewed by me in its entirety. I confirm that the note above accurately reflects all work, treatment, procedures, and medical decision making performed by me. Impression & Plan Syncope, Vertigo Past Med/Surg History Medical History Encounter for pre-operative examination HLD (hyperlipidemia) (Chronic) Prediabetes (Chronic) Anginal pain (Chronic) Hypertension Atrial flutter ON DILTIAZEM Emphysema/COPD INHALER PRN GERD (gastroesophageal reflux disease) History of anesthesia reaction 45 YRS AGO-DIFFICULTY WAKING AND HX OF HEART RATE DROPPING, NO ISSUES SINCE Hyperlipidemia Hypothyroidism Osteoporosis Skin cancer Stable angina Surgical History S/P laparoscopic appendectomy H/O Moh's micrographic surgery for skin cancer 2010 H/O abdominal hysterectomy H/O bilateral cataract extraction H/O lumbar discectomy History of appendectomy History of bilateral tubal ligation History of breast biopsy BILT-BENIGN History of bronchoscopy L LUNG ?SPOT History of cardiac cath 1983 X1--NO STENT NO PLASTIC SURGERY ASSISTANT History of colonoscopy History of dilatation and curettage History of esophagogastroduodenoscopy (EGD) History of tonsillectomy History of tooth extraction ALL TEETH Family History Family/Other Family history of diabetes mellitus NIECES, NEPHEWS Brother Family hx of colon cancer Family/Other Family hx of colon cancer 1 NIECE, 2 NEPHEWS Social History Preferred Language: Italian Communication Ability: Effective Beliefs That Will Affect Care: None Current Living Situation: Family Current Living Situation Comment: LIVES WITH SON Feels Safe at Home: Yes Smoking Status: Current every day smoker Tobacco Type: cigarettes Cigarettes Per Day: 10 A DAY Second Hand Exposure: Yes (PARENTS SMOKED) Hx Alcohol Use: No Hx Substance Use: No Results & Data Vital Signs Vital Signs - 24 hr 08/29/18 01:49 08/29/18 02:20 08/29/18 03:15 Temperature 36.5 C Temperature Source Oral Sepsis Recent Fever Within 48 Hours No Sepsis New/Unexplained Change in Mental Status No Sepsis Action Taken by Nursing No Action Required Pulse Rate 70 Pulse Rate [Right Apical] 70 64 Pulse Rhythm Regular Pulse Rhythm [Right Apical] Regular Pulse Strength Normal Pulse Strength [Right Apical] Normal Respiratory Rate 18 18 16 Respiratory Effort / Characteristics Non-Labored Non-Labored Respiratory Depth Normal Normal Respiratory Pattern Regular Regular Blood Pressure 130/59 L Blood Pressure [Right Arm] 104/55 L 114/60 Blood Pressure Mean 82 Blood Pressure Mean [Right Arm] 71 78 Blood Pressure Position Lying Blood Pressure Position [Right Arm] Lying Pulse Oximetry 88 L 99 100 Oxygen Delivery Method Room Air Room Air Nasal Cannula Oxygen Flow Rate 2 08/29/18 04:57 08/29/18 05:45 Temperature Temperature Source Sepsis Recent Fever Within 48 Hours Sepsis New/Unexplained Change in Mental Status Sepsis Action Taken by Nursing Pulse Rate 65 Pulse Rate [Right Apical] 66 Pulse Rhythm Pulse Rhythm [Right Apical] Regular Pulse Strength Pulse Strength [Right Apical] Normal Respiratory Rate 16 16 Respiratory Effort / Characteristics Non-Labored Respiratory Depth Normal Respiratory Pattern Regular Blood Pressure 119/59 L Blood Pressure [Right Arm] 102/61 Blood Pressure Mean Blood Pressure Mean [Right Arm] 74 Blood Pressure Position Blood Pressure Position [Right Arm] Lying Pulse Oximetry 98 99 Oxygen Delivery Method Nasal Cannula Nasal Cannula Oxygen Flow Rate 2 2 Home Medications Current Medication List: was personally reviewed by me Laboratory Data Attestation: I reviewed the patient's lab results. Result diagrams: 08/29/18 02:06 08/29/18 02:06 Lab Results 08/29/18 08/29/18 Range/Units 02:06 02:06 WBC 10.40 (4.8-10.8) K/uL RBC 4.75 (4.2-5.4) M/uL Hgb 14.1 (12.0-16.0) g/dL Hct 41.4 (37-47) % MCV 87.2 (80-100) fL MCH 29.7 (25-34) pg MCHC 34.1 (32-36) g/dL RDW Std Deviation 46.4 H (36.4-46.3) fL RDW Coeff of Sindhu 14.5 (11.5-14.5) % Plt Count 159 (130-400) K/uL MPV 10.7 H (7.4-10.4) fL Immature Gran % (Auto) 0.2 % Neut % (Auto) 77.8 % Lymph % (Auto) 12.6 % Douglas % (Auto) 7.7 % Eos % (Auto) 1.5 % Baso % (Auto) 0.2 % Immature Gran # (Auto) 0.02 (0.00-0.02) K/uL Neut # (Auto) 8.09 H (1.4-6.5) K/uL Lymph # (Auto) 1.31 (1.2-3.4) K/uL Douglas # (Auto) 0.80 H (0.11-0.59) K/uL Eos # (Auto) 0.16 (0-0.5) K/uL Baso # (Auto) 0.02 (0-0.2) K/uL Sodium 141 (136-145) mmol/L Potassium 3.7 (3.5-5.1) mmol/L Chloride 107 (98-107) mmol/L Carbon Dioxide 27 (21-32) mmol/L Anion Gap 7.0 (3-11) BUN 21 H (7-18) mg/dl Creatinine 1.06 (0.6-1.2) mg/dl Est Cr Clr Drug Dosing 44.8 ml/min Est GFR ( Amer) 58.7 Est GFR (Non-Af Amer) 50.6 BUN/Creatinine Ratio 20.2 H (10-20) Glucose 116 H (70-99) mg/dl Calcium 8.3 L (8.5-10.1) mg/dl Magnesium 2.1 (1.8-2.4) mg/dl Total Bilirubin 0.3 (0.2-1) mg/dl Direct Bilirubin < 0.1 (0-0.2) mg/dl AST 10 L (15-37) U/L ALT 13 (12-78) U/L Alkaline Phosphatase 71 (45-117) U/L Troponin I < 0.015 (0-0.045) ng/ml Total Protein 6.8 (6.4-8.2) gm/dl Albumin 3.5 (3.4-5.0) gm/dl Discharge Plan Visit Data Chief Complaint: Syncope (Near Syncope) Stated Complaint: DIZZY/ NEAR SYNCOPE ED Provider: Joshua Shaw Discharge Problem: Syncope, Vertigo Patient Disposition: Being Evaluated by Hospitalist Discharge Instructions Interventions: ED Discharge Assessment Last Done: 08/29/18 05:45 Forms Stand Alone Forms: [employer] Prescriptions Prescriptions: No Action diltiazem HCl 180 mg Capsule,Extended Release 24 Hr 180 mg PO BID RF: 0 lovastatin 40 mg Tablet 40 mg PO QAM RF: 0 aspirin [Aspirin Low Dose] 81 mg Tablet,Delayed Release (Dr/Ec) 81 mg PO QAM RF: 0 levothyroxine 50 mcg Tablet 1 tab PO QAM RF: 0 ranitidine HCl 150 mg Capsule 150 mg PO BID RF: 0 albuterol sulfate [Ventolin HFA] 90 mcg/actuation Hfa Aerosol Inhaler 2 puff INHALATION QID PRN (Reason: Shortness Of Breath Or Wheezing) RF: 0 Referrals Referrals: Justice Graves MD [Primary Care Provider] - Discharge Problem: Syncope Qualifiers: Syncope type: unspecified Qualified Code(s): R55 - Syncope and collapse The scribe's documentation has been prepared under my direction and personally reviewed by me in its entirety. I confirm that the note above accurately reflects all work, treatment, procedures, and medical decision making performed by me.
[2018-08-29] MEDS ORDERED: ONDANSETRON INJ 2 MG/ML 2 ML VIAL IV PRN (06:19)
--- NOTE | 2018-08-29 06:28 | CT Scan Report ---
CT head/brain wo con CLINICAL HISTORY: syncope COMPARISON STUDY: MRI dated 06/26/2011 TECHNIQUE: Axial CT of the brain is performed from the vertex to the skull base. IV contrast was not administered for this examination. A dose lowering technique was utilized adhering to the principles of ALARA. CT DOSE: 614.27 mGy.cm FINDINGS: No intra or extra-axial mass lesions are visualized. There is no CT evidence of acute cortical infarc tion. There is no evidence of midline shift. There is no acute hemorrhage. No calvarial fractures ar e visualized. There are minor white matter hypodensities likely on a small vessel basis. There is no evidence of pathologic ventricular dilatation. There is no evidence of acute sinusitis IMPRESSION: No acute intracranial findings Electronically signed by: Rojelio Romero M.D. 08/29/2018 6:27 AM
--- NOTE | 2018-08-29 07:09 | XRay Report ---
XR chest 1V portable CLINICAL HISTORY: 78 years-old Female presenting with syncope. TECHNIQUE: Portable upright AP view of the chest was obtained. COMPARISON: Chest CT from 08/30/2017 and chest x-ray from 05/05/2017. FINDINGS: Atherosclerosis of the aortic arch. Cardiac silhouette normal in size. Redemonstration of the dense l eft midlung opacity, which corresponds with a calcified pleural plaque on prior CT. Lungs are hyperin flated. Calcified granuloma noted in the right midlung. Minimal bibasilar opacities, similar to prior . No pleural effusion or pneumothorax. Degenerative changes of the thoracic spine. Upper abdomen norm al. IMPRESSION: 1. Findings suggest emphysema. No focal infiltrate to suggest pneumonia. 2. Minimal bibasilar opacities may correspond with prior subsegmental lower lobe mucous plugging and chronic changes of the lung bases, which were evident on prior chest CT. 3. Calcified pleural plaques likely indicate a history of asbestos exposure. Electronically signed by: Karan Main M.D. 08/29/2018 7:07 AM
[2018-08-29 07:23] LABS: Prothrombin Time 10.1 Seconds (9.0-12.0)
[2018-08-29] MEDS: NSS + 20MEQ KCL 20 MEQ/1,000 ML BAG IV SCH ×3 (07:38→23:50)
[2018-08-29] MEDS: HEPARIN SOD 5,000 UNIT/0.5 ML VIAL SQ SCH ×2 (07:55→22:30)
--- NOTE | 2018-08-29 09:28 | Neurology Consultation ---
Date of Consultation August 29, 2018 Assessment & Plan (1) Syncope: I suspect this patient experienced an episode of vasovagal syncope. It sounds like she has experienced several similar episodes over the past year or so. I wonder if the episodes could be triggered by episodic bradycardia or hypotension. If no obvious cardiovascular abnormalities are identified during this hospitalization it may be worthwhile to consider a 30-day event monitor. I wonder if her diltiazem dosage could be reduced. The episodes do not really sound like vertebrobasilar insufficiency, stroke, or TIA. However, I think obtaining a brain MRI and CT angiogram of the head and neck would be worthwhile to at least exclude a significant cerebrovascular problem. The episodes do not really sound like seizures and I would not recommend an EEG at this time. History of Present Illness Reason for Consultation: Dizziness Requesting Physician: Reji Bates Attending Physician: Reji Bates History of Present Illness The patient is a 78-year-old female with a chief complaint of dizziness. She complains of an episode of intense dizziness which she describes as her environment spinning which occurred acutely last night at around midnight. The episode had awoken her from sleep and was associated with intense nausea. She recalls walking to the bathroom and attempting to vomit. She believes she sat down on the commode feeling very dizzy, lightheaded, and had the perception that her vision and hearing was dimming down. She recalls calling to her son for help. She believes she lost consciousness for a brief period of time. She recalls emergency medical personnel bring her to the emergency department but does not really recall other details of her initial evaluation and care at the hospital. The patient indicates that she has had a few other very similar episodes over the past year or so. She believes she had a similar event occur about 2 to 3 months ago, but while she was sitting up speaking to her sister on the telephone. Other events have awoken her from sleep, as with the most recent event. Currently, the patient indicates that she feels fine. She denies any perception of dizziness, vertigo, or nausea. Further, she denies expressing any headache, diplopia, change in speech, or specific weakness or sensory loss of the limbs. She does complain of some persistent discomfort and pain involving the right ear and right side of the neck which is been present for several months. She denies any associated rash or hearing loss. She does admit to some vague feeling of ear fullness with perhaps some occasional tinnitus, but nothing definitively related to her recent event. Past medical history also notable for a chronic head and voice tremor. She has been prescribed diltiazem for many years which she indicates this to address occasional palpitations. Allergies Allergy/AdvReac Type Severity Reaction Status Date / Time Penicillins Allergy Intermediate HIVES Verified 08/29/18 03:37 bupropion Allergy Unknown "changes Verified 08/29/18 03:37 my attitude" codeine Allergy Unknown "passes Verified 08/29/18 03:37 out" prednisone Allergy Unknown ITCHING, Verified 08/29/18 03:37 PALPITATIONS morphine AdvReac Intermediate NIGHTMARES Verified 08/29/18 03:37 simvastatin AdvReac Intermediate MYALGIA Verified 08/29/18 03:37 Home Medications Home Medications Medication Instructions Recorded Confirmed Type albuterol sulfate [Ventolin HFA] 2 puff INHALATION QID PRN 11/24/17 08/29/18 His tory aspirin [Aspirin Low Dose] 81 mg PO QAM 11/24/17 08/29/18 History diltiazem HCl 180 mg PO BID 11/24/17 08/29/18 History levothyroxine 1 tab PO QAM 11/24/17 08/29/18 History lovastatin 40 mg PO QAM 11/24/17 08/29/18 History ranitidine HCl 150 mg PO BID 11/24/17 08/29/18 History Patient History Medical History Encounter for pre-operative examination HLD (hyperlipidemia) (Chronic) Prediabetes (Chronic) Anginal pain (Chronic) Hypertension Atrial flutter ON DILTIAZEM Emphysema/COPD INHALER PRN GERD (gastroesophageal reflux disease) History of anesthesia reaction 45 YRS AGO-DIFFICULTY WAKING AND HX OF HEART RATE DROPPING, NO ISSUES SINCE Hyperlipidemia Hypothyroidism Osteoporosis Skin cancer Stable angina Surgical History S/P laparoscopic appendectomy H/O Moh's micrographic surgery for skin cancer 2010 H/O abdominal hysterectomy H/O bilateral cataract extraction H/O lumbar discectomy History of appendectomy History of bilateral tubal ligation History of breast biopsy BILT-BENIGN History of bronchoscopy L LUNG ?SPOT History of cardiac cath 1984 X1--NO STENT NO TRANSITION MGR History of colonoscopy History of dilatation and curettage History of esophagogastroduodenoscopy (EGD) History of tonsillectomy History of tooth extraction ALL TEETH Family History Family/Other Family history of diabetes mellitus NIECES, NEPHEWS Brother Family hx of colon cancer Family/Other Family hx of colon cancer 1 NIECE, 2 NEPHEWS Social History Preferred Language: Norwegian Communication Ability: Effective Beliefs That Will Affect Care: None Current Living Situation: Family Current Living Situation Comment: LIVES WITH SON Feels Safe at Home: Yes Smoking Status: Current every day smoker Tobacco Type: cigarettes Cigarettes Per Day: 20 Second Hand Exposure: Yes (PARENTS SMOKED) Hx Alcohol Use: No Hx Substance Use: No Review of Systems Constitutional: no fever and no chills Eyes: no blind spots and no diplopia Ear, Nose, Mouth, Throat: as per Subjective / HPI, + ear pain and + tinnitus; no hearing loss Respiratory: + dyspnea and + wheezing Cardiovascular: + palpitations; no chest pain Gastrointestinal: as per Subjective / HPI and + vomiting Genitourinary: no dysuria Musculoskeletal: no myalgia Integumentary: no rash and no lesions Neurologic: as per Subjective / HPI; no localized weakness, no loss of sensation and no headache(s) Psychiatric: no depression and no anxiety Hematologic / Lymphatic: no easy bleeding and no easy bruising Physical Exam Physical Exam: The patient is a well-developed, well-nourished elderly female. She is alert and fully oriented. Recent and remote memory intact. Attention and concentration normal. Patient exhibits a normal spontaneous speech pattern as well as an age-appropriate fund of knowledge. Her speech is mildly tremulous. Visual pillai full to confrontation. Visual acuity normal. Pupils equal round reactive to light and accommodation. Eye movements normal. There is no nystagmus. Facial sensation intact. There is no facial droop or weakness. Hearing intact bilaterally. Palate elevates to midline. Shoulder shrug intact. Tongue protrudes to midline. Sensation intact to all modalities in all 4 limbs. Deep tendon reflexes intact and symmetrical for the arms and legs bilaterally. Plantar responses downgoing bilaterally. There is no dysdiadochokinesia or dysmetria [id number] or [id number] bilaterally. Patient exhibits a very mild intention tremor with [id number] bilaterally. No ataxia. Ophthalmoscopic examination reveals normal-appearing optic disks and posterior segments. No papilledema or hemorrhages. Carotid pulses normal bilaterally, no bruits to auscultation. Gait and station not tested due to safety concerns. Patient exhibits normal muscle strength and tone for all 4 limbs. No atrophy. Mild intention tremor with [id number] bilaterally observed. No resting tremor. Results & Data Vital Signs (Past 12 Hours) Vital Signs Temp Pulse Pulse Resp BP BP BP 08/29/18 07:19 36.4 C L 60 20 123/74 08/29/18 05:55 36.8 C 73 18 124/74 08/29/18 05:45 65 16 119/59 L 08/29/18 04:57 66 16 102/61 08/29/18 03:15 64 16 114/60 08/29/18 02:20 70 18 104/55 L 08/29/18 01:49 36.5 C 70 18 130/59 L Pulse Ox 08/29/18 07:19 100 08/29/18 05:55 97 08/29/18 05:45 99 08/29/18 04:57 98 08/29/18 03:15 100 08/29/18 02:20 99 08/29/18 01:49 88 L Laboratory Results Recently completed labs reviewed. WBC 10.40, hemoglobin 14.1, platelet count 1 59, sodium 141, potassium 3.7, BUN 21, creatinine 1.06, glucose 116, calcium 8.3, magnesium 2.[address] of the head reveals mild white matter hyperintensities consistent with chronic small vessel change. No hemorrhage or acute process. I reviewed the images and radiologist's interpretation of this test and agree. Electrocardiogram reveals normal sinus rhythm, 77 bpm. (1) Syncope Syncope type: unspecified Qualified Code(s): R55 - Syncope and collapse
[2018-08-29] MEDS ORDERED: OPTIRAY 320 125ml IV PRN (10:13)
--- NOTE | 2018-08-29 10:56 | CT Scan Report ---
CT angio neck with con CLINICAL HISTORY: 78 years-old Female presenting with vertigo, syncope, r/o VBI. TECHNIQUE: Multidetector CT angiography of the neck was performed after the administration of intrave nous contrast. 3-D volumetric and/or maximum intensity projection (MIP) images were subsequently spenser nstructed for review. IV contrast: 118 mL of Optiray 320. One or more dose lowering techniques were u sed consistent with the principles of ALARA (as low as reasonably achievable), including automatic ex posure control, mA or kV adjustment to individual patient size, and/or use of iterative reconstructio n. Stenosis measurements were based on NASCET-like criteria (distal lumen diameter as the denominator for stenosis measurement). COMPARISON: Carotid Doppler ultrasound from 2014. CT DOSE (mGy.cm): The estimated cumulative dose is 563.9. FINDINGS: Metal Tube Cutter topogram: Unremarkable. Aortic arch: Atherosclerosis of the three-vessel aortic arch with patent origins of the branch vessel s. Innominate artery: Patent. Right subclavian artery: Patent. Right common carotid artery: Patent. Right internal and external carotid arteries: Noncalcified atherosclerotic plaque at the bifurcation with associated mild intimal irregularity. Basilic and stenosis of the origin of the right internal o r external carotid arteries. Left common carotid artery: Common trunk of the left common carotid with the innominate artery. Left internal and external carotid arteries: Calcified and noncalcified atherosclerotic plaque result s in mild luminal irregularity at the carotid bifurcation. No stenosis of the origin of the left inte rnal or external carotid arteries. Left subclavian artery: Patent. Vertebral arteries: Codominant vertebral arteries. Origins and courses of the bilateral vertebral art eries patent. Other: Limited intracranial evaluation within normal limits. Few varices noted in the posterior soft tissues at the level of C1. Normal cervical spine. Extensive centrilobular emphysema at the upper lob es. IMPRESSION: 1. Atherosclerosis without evidence of dissection, focal vessel occlusion, or significant stenosis o f the cervical arteries. Luminal irregularity at the carotid bifurcations does not result in stenosis of the origins of the internal carotid arteries. 2. Emphysema. Electronically signed by: Karan Main M.D. 08/29/2018 10:55 AM
--- NOTE | 2018-08-29 11:07 | CT Scan Report ---
CT angio head w con CLINICAL HISTORY: Vertigo, syncope, possible vertebrobasilar insufficiency. TECHNIQUE: CT angiography of the head was performed in a dynamic helical fashion during intravenous a dministration of 118 cc of Optiray 320. MIP imaging was performed. A dose lowering technique was util ized adhering to the principles of ALARA. CT DOSE: 563.89 mGy.cm COMPARISON STUDY: Noncontrast head CT dated 08/29/2018 FINDINGS: There are no lesion suspicious for aneurysm. There are no major intracranial branch occlusi ons. The dural venous sinuses appear patent. There is a mixed lytic and sclerotic 14 mm left calvarial lesion near the vertex. There are prominent right posterior upper cervical there is series which appear to communicate with t he vertebral vein. These are uncertain significance. IMPRESSION: 1. No evidence of aneurysm 2. No evidence of major intracranial branch occlusion 3. Prominent right posterior upper cervical varices which appear to communicate with the vertebral ve in. These are of uncertain significance Electronically signed by: Rojelio Romero M.D. 08/29/2018 11:06 AM
[2018-08-29] MEDS ORDERED: Nursing to Pharmacy Communication ONE (22:54)
[2018-08-29 23:02] LABS: Appearance Urine Slightly Cloudy (Clear); Bilirubin Urine Negative (Negative); Blood Urine Trace (Negative); Color Urine Yellow; Glucose Urine UA Negative (Negative); Ketones Urine Negative (Negative); Leukocyte Esterase Urine Negative (Negative); Nitrite Urine Negative (Negative); Protein Urine Negative (Negative); Specific Gravity Urine <= 1.005 (1.000-1.030); Urobilinogen Urine Negative (Negative); pH Urine 6.5 (4.5-7.5)
[2018-08-29 23:21] LABS: Epithelial Cell Urine >30 /lpf (0-5)
[2018-08-29 23:23] LABS: Bacteria Urine 1+ (Negative); RBC Urine 0-4 /hpf (0-4)
[2018-08-30] MEDS ORDERED: CLINDAMYCIN 600 MG/54 ML BAG IV SCH (06:00)
[2018-08-30] MEDS: NSS + 20MEQ KCL 20 MEQ/1,000 ML BAG IV SCH (07:13)
[2018-08-30] MEDS: HEPARIN SOD 5,000 UNIT/0.5 ML VIAL SQ SCH (07:45)
--- NOTE | 2018-08-30 08:22 | Neurology Progress Note ---
Date of Service August 30, 2018 Assessment & Plan (1) Syncope: I suspect this patient experienced an episode of vasovagal syncope 2 nights ago in the context of a severe vertiginous episode that awoke her from sleep. Other than a mild chronic head, voice, and bilateral upper extremity action tremor, this patient does not have any specific or localizing findings on her examination. She did not tolerate brain MRI due to severe claustrophobia. However, her recently completed CT angiography of the head and neck are unremarkable. I doubt she has had a brainstem stroke and there is no convincing evidence for vertebrobasilar insufficiency. An episode of benign positional paroxysmal vertigo triggering vasovagal syncope is possible and cannot really be excluded with 100% certainty. An episode of symptomatic bradycardia and/or nocturnal hypotension may not be excluded either. I do not really have any further more specific neurological recommendations for this patient during her hospitalization. However, it may be worthwhile to obtain a 30-day cardiac event monitor. It looks like her Cardizem has been on hold during this hospitalization. It may be reasonable to reduce the dosage of this medication at the time of discharge. However, she will need to follow-up with her primary care physician for ongoing management of her hypertensive therapy. Please contact me if I may be of further assistance. Subjective Follow-up for vertigo/syncope Patient is a 78-year-old female who was admitted for further evaluation and management of an intense vertigo followed by syncope. Her symptoms awoke her from sleep 2 nights ago. She has had a few similar episodes previously. No events reported during this hospitalization. She has severe claustrophobia and was unable to tolerate the recommended brain MRI. She did complete the re quested CT angiography of the head and neck. No significant abnormalities were identified, results described further below. Currently, the patient does not have any new or specific neurological complaints. She denies headache, vision disturbance, change in hearing, tinnitus, focal weakness, or sensory loss. She does have a chronic voice and mild hand tremor which is not significantly changed. Review of Systems Constitutional: no fever and no chills Eyes: no blind spots and no diplopia Ear, Nose, Mouth, Throat: no tinnitus and no hearing loss Neurologic: as per Subjective / HPI Physical Exam Physical Exam: The patient is a well-developed, well-nourished elderly female. She is sitting up comfortably in bed eating breakfast. She is alert and fully oriented. Recent and remote memory intact. Attention and concentration normal. Patient exhibits a normal spontaneous speech pattern although her speech does have a tremulous quality. She is able to name objects and repeat phrases. Patient exhibits an age-appropriate fund of knowledge and normal vocabulary. Visual pillai full to confrontation. Visual acuity normal. Pupils equal round react to light and accommodation. Eye movements normal. No nystagmus. Facial sensation intact. There is no facial droop or weakness. Hearing intact. Palate elevates to midline. Shoulder shrug intact. Tongue protrudes to midline. Sensation intact in all 4 limbs. There is no dysdiadochokinesia or dysmetria with [id number]-[id number] or [id number] bilaterally. Patient exhibits a mild head and voice tremor as well as a mild bilateral upper extremity postural/action tremor. Results & Data Vital Signs (Past 12 Hours) Vital Signs Temp Pulse Pulse Resp BP BP Pulse Ox 08/30/18 07:35 36.6 C 65 16 158/74 H 93 08/30/18 04:26 36.7 C 67 18 149/67 H 92 08/29/18 23:53 37.1 C 73 18 137/71 90 08/29/18 22:[address] angiography of the head completed yesterday was negative for aneurysm or major intracranial branch occlusion. There are prominent right posterior upper cervical varices which may communicate with the vertebral vein. This finding is of undetermined significance. CT angiography of the neck revealed atherosclerotic changes without evidence of dissection, focal occlusion, or significant stenosis of the cervical arteries. An electrocardiogram completed yesterday revealed a normal sinus rhythm, 77 bpm. (1) Syncope Syncope type: unspecified Qualified Code(s): R55 - Syncope and collapse
[2018-08-30 08:51] LABS: BUN Creatinine Ratio 15.9 (10-20); Calcium 8.7 mg/dl (8.5-10.1); Creatinine Clr Calc Pharmacy 64.2 ml/min; Est GFR (African American) 90.6; Est GFR (Non-African American) 78.1; Potassium 4.1 mmol/L (3.5-5.1)
--- NOTE | 2018-08-30 09:40 | Cardiology Consultation ---
Date of Consultation August 30, 2018 Assessment & Plan (1) Syncope: She has had multiple episodes of syncope, they have occurred for many years although it sounds as though they are increasing in frequency but details are sparse. They occur at odd times for these just to be vagal episodes. I think we need to document her rhythm during the episodes, they clearly sound like low blood pressure which most likely would be due to some type of arrhythmia. She has no palpitations so it is likely not a fast heart rate (she does have palpitations with PACs) but it is possible. I think the most effective way to document these episodes is with an implantable loop recorder. I discussed the indications, procedure, risks and alternatives with her and she understands and agrees to proceed. Consent obtained. We discussed sedation and she is agreeable to not having sedation, she did eat breakfast and will not eat any further food until after the procedure. She should be safe to go home today after the procedure. History of Present Illness Reason for Consultation: Syncope Attending Physician: Reji Bates History of Present Illness This is a very pleasant 78-year-old woman who has a history of palpitations which are due to premature atrial beats, and also a long history of syncope. Her description of syncope is little bit difficult to follow, she cannot place any type of timeframe on her episodes except that they have occurred for many years. [place]. It sounds like she was fairly young when they happened, although probably not in childhood, although she really cannot tell me that. She also cannot tell me how often they have occurred except that there relatively frequent but becoming more frequent. They are associated with nausea, however not consistently and they occur at times which would not be typical of vagal episodes (such as walking upstairs as well as an unusual description of waking up with presyncopal symptoms). She has had 2 episodes in the last 2 months, prior to that I cannot get a good feel for how often they occur. They do not occur necessarily when she is sick (such as if she has a GI illness) even though nausea is often associated with them. She also has a sensation of tunnel vision and her vision going black and lightheadedness. It sounds as though she is describing hypotension, likely related to some type of arrhythmia. She does not have palpitations. Allergies Allergy/AdvReac Type Severity Reaction Status Date / Time Penicillins Allergy Intermediate HIVES Verified 08/29/18 03:37 bupropion Allergy Unknown "changes Verified 08/29/18 03:37 my attitude" codeine Allergy Unknown "passes Verified 08/29/18 03:37 out" prednisone Allergy Unknown ITCHING, Verified 08/29/18 03:37 PALPITATIONS morphine AdvReac Intermediate NIGHTMARES Verified 08/29/18 03:37 simvastatin AdvReac Intermediate MYALGIA Verified 08/29/18 03:37 Home Medications Home Medications Medication Instructions Recorded Confirmed Type albuterol sulfate [Ventolin HFA] 2 puff INHALATION QID PRN 11/24/17 08/29/18 History aspirin [Aspirin Low Dose] 81 mg PO QAM 11/24/17 08/29/18 History diltiazem HCl 180 mg PO BID 11/24/17 08/29/18 History levothyroxine 1 tab PO QAM 11/24/17 08/29/18 History lovastatin 40 mg PO QAM 11/24/17 08/29/18 History ranitidine HCl 150 mg PO BID 11/24/17 08/29/18 History Patient History Medical History Encounter for pre-operative examination HLD (hyperlipidemia) (Chronic) Prediabetes (Chronic) Anginal pain (Chronic) Hypertension Atrial flutter ON DILTIAZEM Emphysema/COPD INHALER PRN GERD (gastroesophageal reflux disease) History of anesthesia reaction 45 YRS AGO-DIFFICULTY WAKING AND HX OF HEART RATE DROPPING, NO ISSUES SINCE Hyperlipidemia Hypothyroidism Osteoporosis Skin cancer Stable angina Surgical History S/P laparoscopic appendectomy H/O Moh's micrographic surgery for skin cancer 2010 H/O abdominal hysterectomy H/O bilateral cataract extraction H/O lumbar discectomy History of appendectomy History of bilateral tubal ligation History of breast biopsy BILT-BENIGN History of bronchoscopy L LUNG ?SPOT History of cardiac cath 1983 X1--NO STENT NO RETAIL ADVISOR History of colonoscopy History of dilatation and curettage History of esophagogastroduodenoscopy (EGD) History of tonsillectomy History of tooth extraction ALL TEETH Family History Family/Other Family history of diabetes mellitus NIECES, NEPHEWS Brother Family hx of colon cancer Family/Other Family hx of colon cancer 1 NIECE, 2 NEPHEWS Social History Preferred Language: Latvian Communication Ability: Effective Beliefs That Will Affect Care: None Current Living Situation: Family Current Living Situation Comment: LIVES WITH SON Feels Safe at Home: Yes Smoking Status: Current every day smoker Tobacco Type: cigarettes Cigarettes Per Day: 10 A DAY Second Hand Exposure: Yes (PARENTS SMOKED) Hx Alcohol Use: No Hx Substance Use: No Review of Systems Review of Systems: All systems reviewed & are unremarkable except as noted in HPI & below Physical Exam Physical Exam: Constitutional: Alert, cooperative and in no distress. HEENT: Unremarkable Neck: No jugular venous distention, carotid pulses are normal and equal bilaterally without bruits. Pulmonary: Clear to auscultation bilaterally. Cardiac: Regular rhythm with no murmur, gallop or rub. Abdomen: Soft, nontender with normal bowel sounds. Extremities: No edema. Distal pulses intact. Neurologic: No focal findings. Gait is steady. Skin: No rash, ecchymoses or petechiae. Results & Data Vital Signs (Past 12 Hours) Vital Signs Temp Pulse Pulse Resp BP BP Pulse Ox 08/30/18 07:35 36.6 C 65 16 158/74 H 93 08/30/18 04:26 36.7 C 67 18 149/67 H 92 08/29/18 23:53 37.1 C 73 18 137/71 90 08/29/18 22:45 61 Diagnostic Findings Electrocardiogram: Normal Telemetry: Sinus rhythm, some sinus bradycardia, no significant abnormality (1) Syncope Syncope type: unspecified Qualified Code(s): R55 - Syncope and collapse
[2018-08-30] MEDS ORDERED: LACTATED RINGER'S 1,000 ML IV SCH (09:45)
[2018-08-30] MEDS ORDERED: LIDOCAINE HCL 1% 20 ML VIAL ONE (12:56)
[2018-08-30] MEDS ORDERED: BACITRACIN OINT 0.9 GM PKT ONE (13:10)
--- NOTE | 2018-08-30 13:16 | Operative Report ---
Post Operative Report Pre & Post Diagnosis Operation Date: 08/30/18 12:30 Preop Dx: Syncope Postop DX: Same Procedure Operation Date: 08/30/18 12:30 Actual Procedures p Implant Cardiac Event Recorder - Berny Pool MD Surgeon Berny Pool MD Hand Shaper None Estimated Blood Loss 2 Findings Consistent with Post-Op Diagnosis Specimens None Anesthesia Type Local Complications none Description of Procedure After obtaining informed consent for the procedure, the patient was brought to the laboratory having had nothing by mouth after breakfast. The patient was prepped and draped in the standard sterile manner for a loop recorder implantation. An area at the fourth left intercostal space and 1 cm left of the left sternal border was infiltrated with 1% lidocaine local anesthetic and a 0.5 cm incision was made through the skin. Using the loop recorder insertion tool the loop recorder was inserted through the incision at a 45 downward and leftward angle. The incision was closed with a subcutaneous continuous closure of 4-0 Vicryl followed by a running subcuticular skin closure of 4-0 Vicryl. Steri-Strips were applied and bacitracin ointment was placed on the incision. A dressing was applied. I attest to the content of the Intraoperative Record and any orders documented therein. Any exceptions are noted below.
[2018-08-30] MEDS ORDERED: ACETAMINOPHEN 325 MG TAB PO PRN (13:48)
--- NOTE | 2018-09-07 10:34 | Discharge Summary ---
Date of Service August 30, 2018 Admission HPI Per Admitting Provider Patient is unable to relate information due to altered mental state. Principal Diagnosis Near syncope Discharge Exam The patient is awake and comfortable, normocephalic and atraumatic, lying in bed and in no acute distress. HEENT--PERRL, EOMI, mucous membranes and oropharynx dry. Neck--supple. No JVD. No bruits. Thyroid normal, trachea midline, no adenopathy. Heart--normal S1 and S2. No murmurs, rubs or gallops. Lungs--clear bilaterally, no respiratory distress, no accessory muscle use. Abdomen--normal bowel sounds and soft. Nontender. Nondistended. Extremities--no cyanosis or clubbing. No edema. There are good distal pulses b/l. Dermatologic--normal skin turgor, normal color, no abnormal lymph nodes, no maddy h. Neurologic--cranial nerves II through XII grossly intact. Rheumatologic--normal range of motion. Discharge Data Allergies Allergy/AdvReac Type Severity Reaction Status Date / Time Penicillins Allergy Intermediate HIVES Verified 09/05/18 10:18 bupropion Allergy Unknown "changes Verified 09/05/18 10:18 my attitude" codeine Allergy Unknown "passes Verified 09/05/18 10:18 out" prednisone Allergy Unknown ITCHING, Verified 09/05/18 10:18 PALPITATIONS morphine AdvReac Intermediate NIGHTMARES Verified 09/05/18 10:18 simvastatin AdvReac Intermediate MYALGIA Verified 09/05/18 10:18 Consultations 08/29/18 02:48 ED Decision to Admit Stat 08/29/18 06:19 Consult Case Management - Discharge Planning Routine 08/29/18 08:17 Consult Neurology Routine 08/30/18 08:07 Consult Cardiology Routine Procedures Performed Operation Date: 08/30/18 12:30 Actual Procedures p Implant Cardiac Event Recorder - Berny Pool MD Ordered Studies 08/29/18 01:57 CT head/brain wo con Urgent 08/29/18 09:28 CT angio head w con Routine CT angio neck with con Routine Hospital Course (1) Near syncope: The patient reportedly was getting up to go to bathroom, felt dizzy, and sat down on her own because she thought she might pass out, but did not completely pass out. CT of the head was negative, laboratory work-up is negative, would not pursue additional testing such as MRI unless patient had recurrent symptoms or focal symptoms. Admit to telemetry for close monitoring. Would not call this a TIA. Appreciate Cardio input: She has had multiple episodes of syncope, they have occurred for many years although it sounds as though they are increasing in frequency but details are sparse. They occur at odd times for these just to be vagal episodes. I think we need to document her rhythm during the episodes, they clearly sound like low blood pressure which most likely would be due to some type of arrhythmia. She has no palpitations so it is likely not a fast heart rate (she does have palpitations with PACs) but it is possible. I think the most effective way to document these episodes is with an implantable loop recorder. I discussed the indications, procedure, risks and alternatives with her and she understands and agrees to proceed. Consent obtained. We discussed sedation and she is agreeable to not having sedation, she did eat breakfast and will not eat any further food until after the procedure. She should be safe to go home today after the procedure. Patient had implantable loop recorder. Patient's altered mental status was from medication given for vertigo. Patient improved once side effect subsided. (2) Hypothyroidism (acquired): Continue levothyroxine sodium daily (3) GERD (gastroesophageal reflux disease): Continue ranitidine 150 mg p.o. twice daily (4) HLD (hyperlipidemia): Continue lovastatin 40 mg p.o. every morning (5) Vertigo: Presumptively was given Ativan IV in route. Thus likely caused altered mental status (6) Hypertension: Hold diltiazem 180 mg p.o. twice daily while patient is n.p.o.. Will have Cardizem 10 mg IV every 4 hours as needed available Resumed home meds at discharge Total Time Total Time Spent Total Time Spent (In Minutes): 40 Total Time Includes: Examination of the Patient, Discharge Planning, Medication Reconciliation and Communication With Other Providers Discharge Plan Discharge Items Patient Disposition: Home - Self-Care Reason For Visit: ALTERED MENTAL STATUS Discharge Diagnosis: Syncope likely from arrythmia/ hypotension Discharge Goals: Decrease discomfort Activity: Resume your previous activity Non-emergency contact: Primary Care Provider Call non-emergency contact if: you have any medication questions Follow-up/Referrals: Justice Graves MD [Primary Care Provider] - 09/05/18 10:30 am (A follow up appt. has been made with Dr. Graves on September 05 at 10:30am.) Berny Pool MD [Physician] - 08/31/18 10:00 am (Follow up with Zulma Jorge PA-C in cardiology office on September 14 at 2:30pm as well.) Diet: Heart Healthy [facility] Provider Instructions: You were seen for a fall. It likley stemmed from either an abnormal rhythm or low blood pressure. For now will stop diltiazem and will monitor your heart with the loop recorder. Cardiology will have you followup with them within 1 month and tomorrow to check the incision. Will also have you f/u with PCP. You will also be given a script for a walker. ACTIVITY RECOMMENDATIONS: * Do not raise affected arm over head for 2 weeks. SPECIAL CARE INSTRUCTIONS: * If bleeding occurs, apply direct pressure to area for 5 minutes. * Call your doctor if you have severe pain, fever, drainage or bleeding at site. * Keep dressing on and dry. * Keep any scheduled doctor's appointment. * Implant Card - hand held device with website information given. SKIN IRRITATION: * You may experience some redness and/or swelling in the area where radiation was administered. If any skin irritation occurs, please contact your family physician. FOLLOW UP VISIT: Keep any scheduled doctor appointments. Prescriptions: Continued aspirin [Aspirin Low Dose] 81 mg Tablet,Delayed Release (Dr/Ec) 81 mg PO QAM RF: 0 ranitidine HCl 150 mg Capsule 150 mg PO BID RF: 0 albuterol sulfate [Ventolin HFA] 90 mcg/actuation Hfa Aerosol Inhaler 2 puff INHALATION QID PRN (Reason: Shortness Of Breath Or Wheezing) RF: 0 Discontinued diltiazem HCl 180 mg Capsule,Extended Release 24 Hr 180 mg PO BID RF: 0 No Action levothyroxine 25 mcg capsule 25 mcg PO DAILY Qty: 90 RF: 3 lorazepam 0.5 mg tablet 0.5 mg PO BID PRN (Reason: anxiety) Qty: 15 RF: 0 ergocalciferol (vitamin D2) 50,000 unit capsule 50,000 units PO .COMPLEX RF: 0 lovastatin 40 mg tablet 40 mg PO DAILY RF: 0 Stand-Alone Forms: [facility] Discharge Orders: Discharge Order (Routine); Ordered 08/30/18 Ordered By: Reji Bates Admission Data Admit Date/Time: 08/29/18 03:54 Attending Provider: Reji Bates Admit Provider: Aldo Gasca Primary Care Provider: Justice Graves Other Providers: Giuliano Cross ; Berny Pool Service: Telemetry Medical Other Interventions: Discharge Summary Assessment (RN) Last Done: 08/30/18 15:21 DC Date/Time DO NOT enter until pt leaves facility: 08/30/18 15:57
== END 2018-08-30 15:57 | disposition home or self-care (01) | DRG 262 ==
LOC: ED 01:39 → SUATTDRO 03:54 → 2N 03:54
DX: Z79.899 Other long term (current) drug therapy; Z88.8 Allergy status to other drugs, medicaments and biological substances; R55 Syncope and collapse; I10 Essential (primary) hypertension; R42 Dizziness and giddiness; F17.210 Nicotine dependence, cigarettes, uncomplicated; Z88.0 Allergy status to penicillin; Z79.82 Long term (current) use of aspirin; E03.9 Hypothyroidism, unspecified; E78.5 Hyperlipidemia, unspecified; Z88.5 Allergy status to narcotic agent; K21.9 Gastro-esophageal reflux disease without esophagitis